=== PATIENT | female | born 1955 | race Caucasian/White ===

== ENCOUNTER 2019-07-14 13:35 | Outpatient (CLI) | payer MEDICARE, SELFPAY ==
--- NOTE | 2019-07-14 | ECHO_ITS ---
Patient Info Name: Rosi Flaherty Age: 63 years : 1955 Gender: Female Ht: 67 in Wt: 210 lbs BSA: 2.16 m2 HR: 90 bpm BP: 179 / 89 mmHg Heart Rhythm: Sinus Rhythm Technical Quality: Good Exam Date: 07/14/2019 2:16 PM Exam Location: [facility] Patient Status: Outpatient Admit Date: 07/14/2019 Staff Ordering Physician: Gibran Adam MD Can Reconditioner: Isela Kc RDCS Attending Provider: Shanelle*, Gibran Varela MD Referring Physician: Rolanda BAILEY; Exam Type: CA echo doppler color flow Study Info Indications - SOB Complete two-dimensional, color flow and Doppler transthoracic echocardiogram is performed. Summary 1. Left ventricular chamber dimension is normal. 2. Left ventricular systolic function is normal, estimated at 60-65%. 3. 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 4. There is mild mitral valve regurgitation. Left Ventricle Left ventricular chamber dimension is normal. Left ventricular systolic function is normal, estimated at 60-65%. The left ventricular diastolic function is grade I diastolic dysfunction. 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 Right Ventricle Right ventricular chamber dimension is normal. Left Atria Left atrial chamber dimension is normal. Right Atria Right atrial chamber dimension is normal. Aortic Valve The aortic valve is normal. Pulmonic Valve The pulmonic valve is normal. Mitral Valve The mitral valve has normal leaflets and calcified annulus. There is mild mitral valve regurgitation. Tricuspid Valve The tricuspid valve leaflets are normal. There is mild tricuspid valve regurgitation. Pericardium/Pleural The pericardium appears normal. Aorta The aortic root size at the sinus of Valsalva is normal. Left Ventricular Outflow Tract Name Value Normal LVOT 2D LVOT Diameter 2.0 cm LVOT Doppler LVOT Peak Gradient 6 mmHg LVOT Mean Gradient 4 mmHg LVOT VTI 25 cm LVOT VTI/AV VTI Ratio 0.9 LVOT Stroke Volume 79 ml LVOT CO 18.7 l/min LVOT CI 8.7 l/min/m2 Pulmonic Valve Name Value Normal PV Doppler PV Peak Gradient 4 mmHg Tricuspid Valve Name Value Normal TV Regurgitation Doppler TR Peak Velocity 294 cm/s TR Peak Gradient 29 mmHg Estimated PAP/RSVP
== END 2019-07-14 13:36 | disposition home or self-care (01) ==
PROVIDERS: PCP Internal Medicine; Visit Provider Internal Medicine
DX: R06.02 Shortness of breath (principal)
CPT/HCPCS: 93306

== ENCOUNTER 2020-07-01 08:03 | Outpatient (CLI) | payer MEDICARE, SELFPAY ==
--- NOTE | ~2020-07-01 | XR_ITS ---
EXAMINATION: HAND-JUAN JOSÉ ARTHRITIS 3+VIEWS DATE: 07/01/2020 09:08 INDICATION: Systemic sclerosis. Unspecified arthritis. TECHNIQUE: Posteroanterior, lateral, and oblique views of the left and of the right hands as well as a ballcatchers view of both hands were obtained. COMPARISON: None. FINDINGS: There are swan-neck deformities at the bilateral hands most prominently at the right third digit and to a lesser degree at the right second and left second, third and fifth digits. No fractures. Periart icular predominant osteopenia. Osteolysis at the distal phalanges of the right first, third and most probably second distal phalanges and at the left second and third distal phalanges. Polyarticular abigail nt space narrowing throughout the bilateral hands and wrists most prominent at at the bilateral dista l interphalangeal joints, at the bilateral first carpal metacarpal joints and at the right third and fourth proximal interphalangeal joints where there are erosions at the base of the middle phalanges. There is ankylosis across the right fourth distal interphalangeal left third and fifth distal interph alangeal joints. There are small periarticular calcifications about many of the bilateral metacarpoph alangeal and interphalangeal joints. Additional soft tissue calcifications near the base of the right fifth metacarpal and at the bilateral wrists near the extensor carpi ulnaris grooves. IMPRESSION: 1. Constellation of findings at the bilateral hands and wrists most consistent with scleroderma inclu ding moderate to severe polyarticular joint space narrowing most prominent at the bilateral first car pometacarpal and multiple bilateral interphalangeal joints, erosions including distal acro-osteolysis , periarticular osteopenia and subcutaneous and periarticular calcifications. Reviewed, dictated and finalized at location B. ET TESTER IMPRESSION: 1. Constellation of findings at the bilateral hands and wrists most consistent with scleroderma including moderate to severe polyarticular joint space narrowi ng most prominent at the bilateral first carpometacarpal and multiple bilateral interphalangeal joints, erosions including distal acro-osteolysis, periarticul ar osteopenia and subcutaneous and periarticular calcifications.
--- NOTE | ~2020-07-01 | XR_ITS ---
EXAMINATION: XR foot RT standing 2V DATE: 07/01/2020 09:08 INDICATION: Systemic sclerosis, unspecified. TECHNIQUE: 2 views of right foot were obtained. COMPARISON: None. FINDINGS: Bone alignment is normal. No fracture. There is mild osteoarthritis of first metatarsophala ngeal joint, talonavicular joint, and some of the interphalangeal joints. There is an enthesophyte at plantar aspect of calcaneal tuberosity. There are soft tissue calcifications in the third and fifth digits. IMPRESSION: 1. Soft tissue calcifications in the third and fifth digits, which may be seen with systemic sclerosi s. 2. Mild polyarticular osteoarthritis. Reviewed, dictated and finalized at location A. K AIRMAN IMPRESSION: 1. Soft tissue calcifications in the third and fifth digits, which may be seen with systemic sclerosis. 2. Mild polyarticular osteoarthritis.
--- NOTE | ~2020-07-01 | XR_ITS ---
EXAMINATION: XR foot LT standing 2V DATE: 07/01/2020 09:08 INDICATION: Systemic sclerosis, unspecified. TECHNIQUE: 2 views of left foot were obtained. COMPARISON: None. FINDINGS: Bone alignment is normal. No fracture. There is mild osteoarthritis of first metatarsophala ngeal joint, talonavicular joint, some of the interphalangeal joints. There is ankylosis of the third -fifth distal interphalangeal joints. There is a soft tissue calcification in the second digit. IMPRESSION: 1. Soft tissue calcification in the second digit, which may be seen with systemic sclerosis. 2. Mild polyarticular osteoarthritis. Reviewed, dictated and finalized at location A. ER HELPER IMPRESSION: 1. Soft tissue calcification in the second digit, which may be seen with system ic sclerosis. 2. Mild polyarticular osteoarthritis.
--- NOTE | ~2020-07-01 | XR_ITS ---
EXAMINATION: XR lumbar spine min 4V DATE: 07/01/2020 09:08 INDICATION: Systemic sclerosis, unspecified. TECHNIQUE: 5 views of lumbar spine were obtained. COMPARISON: None. FINDINGS: There is 3 degrees dextrocurvature of lumbar spine. There is a chronic compression fracture of L1 with 1/5 loss of height. There is mildly decreased disc height at L1-L2 and severely decreased disc height at L5-S1. There are endplate osteophytes at all levels. There is severe bilateral facet joint osteoarthritis at L5-S1. IMPRESSION: 1. Severe lower lumbar spondylosis. Reviewed, dictated and finalized at location A. MANAGER
--- NOTE | ~2020-07-01 | XR_ITS ---
EXAMINATION: XR knee LT min 4V DATE: 07/01/2020 09:09 INDICATION: Systemic sclerosis, unspecified. TECHNIQUE: 4 views of left knee were obtained. COMPARISON: None. FINDINGS: Bone alignment is normal. No fracture. There is moderate osteoarthritis of medial compartme nt and mild osteoarthritis of lateral and patellofemoral compartments. No knee joint effusion. IMPRESSION: 1. Moderate left knee osteoarthritis. Reviewed, dictated and finalized at location A. ONNEL SECURITY ASSISTANT
[2020-07-01 08:36] LABS: Hematocrit 36.7 % (37.0-47.0); Hemoglobin 12.5 g/dL (12.0-15.0); Mean Corpuscular HGB Conc 34.1 g/dl (32-36); Mean Corpuscular Volume 99.7 fl (80-100); Mean Platelet Volume 10.6 fl (7.4-10.4); Platelet Count Result 230 k/mm3 (150-375); Red Blood Count 3.68 M/mm3 (4.2-5.4); Red Cell Distribution Width 13.2 % (11.5-14.5); White Blood Count 7.6 K/mm3 (4.5-10.0)
[2020-07-01 08:50] LABS: Add Urine Microscopic? YES; Appearance Urine Cloudy (Clear); Bacteria Urine Trace /hpf; Bilirubin Urine Negative (Negative); Color Urine Yellow (Yellow); Glucose Urine UA 3+ mg/dL (Negative); Hyaline Casts Urine 20-29 /lpf; Ketones Urine Negative (Negative); Leukocyte Esterase Ur 3+ LEU/UL (Negative); Mucus Urine Few /lpf; Nitrate Urine Negative (Negative); Protein Urine 1+ mg/dL (Negative); Specific Grav Ur 1.017 (1.001-1.035); Squamous Epithelial Cell Urine Many /hpf (Few); Urobilinogen Urine Negative mg/dL (<2.0); WBC Urine >75 /hpf
[2020-07-01 08:50] LABS: Alanine Aminotransferase 38 U/L (4-35); Albumin Level 3.8 g/dL (3.5-5.1); Alkaline Phosphatase 52 U/L (38-126); Anion Gap 5 mmol/L (8-16); Aspartate Amino Transferase 52 U/L (14-36); Bilirubin,Total 0.4 mg/dL (0.2-1.3); Blood Urea Nitrogen 11 mg/dL (7-17); CRP 0.8 mg/dL (<1.0); Calcium 8.9 mg/dL (8.4-10.2); Carbon Dioxide 30 mmol/L (22-30); Chloride 101 mmol/L (98-107); Creatine Kinase 57 U/L (30-135); Estimated Glomerular Filt Rate > 60; Glucose 224 mg/dL (65-105); Lactate Dehydrogenase 363 U/L (313-618); Sodium 136 mmol/L (137-145)
[2020-07-01 09:02] LABS: Blood Urine Negative (Negative)
[2020-07-01 12:21] LABS: Erythrocyte Sedimentation Rate 20 mm/hr (0-20)
[2020-07-08 04:27] LABS: Aldolase 5.3 U/L (<=8.1)
== END 2020-07-01 08:04 | disposition home or self-care (01) ==
LOC: ANHLAB 08:09
PROVIDERS: PCP Internal Medicine; Visit Provider Internal Medicine
DX: M34.9 Systemic sclerosis, unspecified (principal); M06.9 Rheumatoid arthritis, unspecified; M60.9 Myositis, unspecified; M19.90 Unspecified osteoarthritis, unspecified site; M47.896 Other spondylosis, lumbar region; M19.072 Primary osteoarthritis, left ankle and foot; M17.12 Unilateral primary osteoarthritis, left knee
CPT/HCPCS: 36415; 72110; 73130; 73564; 73620; 80053; 81001; 82085; 82550; 83615; 85027; 85652; 86140; 87086; 87088

== ENCOUNTER → 2020-08-11 12:49 | Outpatient (CLI) | payer MEDICARE, SELFPAY ==
--- NOTE | ~2020-08-11 | US_ITS ---
US transvaginal DATE: 08/11/2020 13:49 INDICATION: Postmenopausal bleeding TECHNIQUE: Real-time imaging via transvaginal approach only COMPARISON: 07/09/2009 CT abdomen pelvis FINDINGS: Uterus measures 9 cm height, 5.2 cm AP and 5.6 cm transverse dimension. Central endometrial echo complex is abnormally prominent and up to 2 cm AP dimension. Endometrial carcinoma cannot be ex cluded. Gynecologic consultation is recommended. The ovaries are not detected transvaginally. No pelvic mass or abnormal pelvic fluid collection is evident. IMPRESSION: Abnormal 2 cm Central endometrial echo; endometrial carcinoma is not excluded. Gynecologi c consult is recommended Reviewed, dictated and finalized at Location A. Reviewed, dictated and finalized at location A. IMPRESSION: Abnormal 2 cm Central endometrial echo; endometrial carcinoma is no t excluded. Gynecologic consult is recommended
== END ==
PROVIDERS: Visit Provider Obstetrics & Gynecology
DX: N95.0 Postmenopausal bleeding (principal)
CPT/HCPCS: 76830

== ENCOUNTER 2020-09-07 14:05 | Outpatient (CLI) | payer MEDICARE, SELFPAY ==
--- NOTE | ~2020-09-07 | XR_ITS ---
EXAMINATION: XR chest 2V DATE: 09/07/2020 14:20 INDICATION: Systemic sclerosis TECHNIQUE: PA and lateral views of the chest were obtained. COMPARISON: 03/05/2007 FINDINGS: Status post right mastectomy tilting in asymmetric increased lucency at the right lower lung zone. No focal airspace opacities, pulmonary edema, pleural effusion or pneumothorax. The cardiomediastinal s ilhouette is normal. Globular dystrophic calcifications at the margins of the right glenohumeral join t likely related to known history of scleroderma. IMPRESSION: 1. No acute cardiopulmonary disease. 2. Globular periarticular dystrophic calcifications at the margins of the right glenohumeral joint co nsistent with known history of scleroderma. Reviewed, dictated and finalized at location A. IMPRESSION: 1. No acute cardiopulmonary disease. 2. Globular periarticular dystrophic calcifications at the margins of the right glenohumeral joint consistent with known history of scleroderma.
== END 2020-09-07 14:06 | disposition home or self-care (01) ==
LOC: ANHIMG 14:10
PROVIDERS: PCP Internal Medicine; Visit Provider Internal Medicine
DX: M34.9 Systemic sclerosis, unspecified (principal)
CPT/HCPCS: 71046

== ENCOUNTER → 2020-10-05 02:24 | Outpatient (CLI) | payer MEDICARE, SELFPAY ==
[2020-10-05 23:32] LABS: SARS-CoV-2 RNA PCR Negative
== END ==
PROVIDERS: PCP Internal Medicine; Visit Provider Obstetrics & Gynecology
DX: Z01.812 Encounter for preprocedural laboratory examination (principal); Z20.822 Contact with and (suspected) exposure to COVID-19
CPT/HCPCS: C9803; U0003; U0005

== ENCOUNTER 2020-10-05 08:57 | Outpatient (CLI) | payer MEDICARE, SELFPAY ==
[2020-10-05 10:09] LABS: Anion Gap 9 mmol/L (8-16); Blood Urea Nitrogen 13 mg/dL (7-17); Calcium 8.6 mg/dL (8.4-10.2); Carbon Dioxide 23 mmol/L (22-30); Chloride 105 mmol/L (98-107); Estimated Glomerular Filt Rate > 60; Glucose 178 mg/dL (65-105); Potassium 4.6 mmol/L (3.4-5.0); Sodium 137 mmol/L (137-145)
== END 2020-10-05 08:58 | disposition home or self-care (01) ==
LOC: ANHSURGERY 09:01
PROVIDERS: Anesthesiology; PCP Internal Medicine; Visit Provider Obstetrics & Gynecology
DX: E11.9 Type 2 diabetes mellitus without complications (principal); Z01.818 Encounter for other preprocedural examination
CPT/HCPCS: 36415; 80048

== ENCOUNTER 2020-10-08 00:25 | Day surgery (SDC) | payer MEDICARE, SELFPAY ==
[2020-09-29 09:29] VITALS: BMI 30.2
--- NOTE | 2020-10-07 14:40 | WPDANESEPPF ---
Anes - Initial Pre Proc Eval Procedure: Operation Date: 10/08/20 14:30 Proposed Procedures p Hysteroscopy Dilation and Curettage - Sunday Herrera MD Date/Time: 10/07/20 14:40 Surgeon: Sunday Herrera MD Pre Op Diagnosis: post menopausal bleeding Patient Data Age: 64 Gender: F Height: 1.7 m Weight: 87.54 kg Allergies Allergy/AdvReac Type Severity Reaction Status Date / Time codeine Allergy Intermediate Swelling Verified 10/08/20 13:31 Aminoglycosides Allergy Mild Rash Verified 10/08/20 13:31 cephalexin Allergy Mild Rash Verified 10/08/20 13:31 Contrast Media Allergy Intermediate HIVES Uncoded 10/08/20 13:31 Home Medications Medication Instructions Recorded Confirmed Type levothyroxine 125 mcg tablet 125 mcg PO DAILY 05/03/20 10/08/20 History losartan 50 mg tablet 50 mg PO DAILY 05/03/20 10/08/20 History metformin 500 mg tablet 1,000 mg PO BID tablet 05/03/20 10/08/20 History naphazo HCl 0.025 %-hyprome 0.2 2 drp OPHTHALMIC (EYE) BID PRN ml 05/03/20 10/08/20 History %-ps 80 0.5 %-Zn sulf 0.25 % eye drops omega-3 fatty acids 1,000 mg 1,000 mg PO DAILY 05/03/20 10/08/20 History capsule tamoxifen 20 mg tablet 20 mg PO DAILY 05/03/20 10/08/20 History tramadol 50 mg tablet 50 mg PO QID PRN tablet 05/03/20 10/08/20 History folic acid 1 mg tablet 1 mg PO DAILY #90 tablet 06/09/20 10/08/20 Rx Lactobacillus acidophilus 10,000 mmu cells PO DAILY 09/29/20 10/08/20 History [Probiotic] ascorbic acid (vitamin C) [Vitamin 500 mg PO DAILY 09/29/20 10/08/20 History C] methotrexate sodium 10 mg PO WEEKLY 09/29/20 10/08/20 History mycophenolate mofetil 500 mg tablet 500 mg PO Q12H #60 tablet 10/01/20 10/08/20 Rx Patient hx anesthesia problems: none Family hx anesthesia problems: none PMFSH Past Medical History Medical History (Updated 10/08/20 @ 11:21 by Sunday Herrera MD) Cancer Diabetes Generalized osteoarthritis of multiple sites HTN (hypertension) Hypercholesterolemia ILD (interstitial lung disease) Myositis Postmenopausal bleeding Restrictive lung disease Rheumatoid arthritis Scleroderma Scleroderma Sjogrens syndrome Thyroid disorder Surgical History Surgical History H/O mastectomy Family History Family History Mother Diabetes mellitus Breast cancer Father Heart disease Grandparent Heart disease Diabetes mellitus Sibling Breast cancer Social History Social History Smoking packs per day: 0.75 Smoking cigarettes per day: 15.0 Years smoked: 10 Smoking pack-years: 7.50 Smoking status: Former smoker Smoking end date: 04/30/90 Alcohol intake: never Substance use: never Substance use type: does not use Living arrangements: with family Spiritual care concerns: No Anes - Eval Final PreProcedure Day of Procedure 10/07/20 14:40 Patient weight: obese Heart: regular rate and rhythm Lungs: clear to auscultation and normal air movement Airway: Mallampati scale class II Neurological: alert and oriented Last oral intake: >/= 8 hours ASA classification: III Emergent: no Anesthetic plan: proceed Anesthesia type and monitoring: general GIVS and LMA Informed Consent: The patient's anesthetic plan and its attendant risks and benefits were discussed with the patient/family/POA. Questions were solicited and answers provided to the satisfaction of the patient/family/POA.
--- NOTE | 2020-10-08 11:10 | PM.HPGS ---
History of Present Illness History of Present Illness Consent: Risks, benefits, and alternatives have been discussed and questions answered. Patient agrees to proceed with procedure. Chief complaint: post menopausal bleeding Narrative: Rosi Flaherty is a 64 year old female with postmenopausal bleeding. ultrasound showed a thickened endometrial complex. Review of Systems Review of Systems: Narrative: vaginal irritation otherwise negative [facility] Past Medical History Medical History (Updated 10/08/20 @ 11:21 by Sunday Herrera MD) Cancer Diabetes Generalized osteoarthritis of multiple sites HTN (hypertension) Hypercholesterolemia ILD (interstitial lung disease) Myositis Postmenopausal bleeding Restrictive lung disease Rheumatoid arthritis Scleroderma Scleroderma Sjogrens syndrome Thyroid disorder Surgical History Surgical History H/O mastectomy Family History Family History Mother Diabetes mellitus Breast cancer Father Heart disease Grandparent Heart disease Diabetes mellitus Sibling Breast cancer Social History Social History Smoking packs per day: 0.75 Smoking cigarettes per day: 15.0 Years smoked: 10 Smoking pack-years: 7.50 Smoking status: Former smoker Smoking end date: 04/30/90 Alcohol intake: never Substance use: never Substance use type: does not use Living arrangements: with family Spiritual care concerns: No Meds Home Medications and Allergies Home Medications Medication Instructions Recorded Confirmed Type levothyroxine 125 mcg tablet 125 mcg PO DAILY 05/03/20 09/29/20 History losartan 50 mg tablet 50 mg PO DAILY 05/03/20 09/29/20 History metformin 500 mg tablet 1,000 mg PO BID tablet 05/03/20 09/29/20 History naphazo HCl 0.025 %-hyprome 0.2 2 drp OPHTHALMIC (EYE) BID PRN ml 05/03/20 09/29/20 History %-ps 80 0.5 %-Zn sulf 0.25 % eye drops omega-3 fatty acids 1,000 mg 1,000 mg PO DAILY 05/03/20 09/29/20 History capsule tamoxifen 20 mg tablet 20 mg PO DAILY 05/03/20 09/29/20 History tramadol 50 mg tablet 50 mg PO QID PRN tablet 05/03/20 09/29/20 History folic acid 1 mg tablet 1 mg PO DAILY #90 tablet 06/09/20 09/29/20 Rx Lactobacillus acidophilus 10,000 mmu cells PO DAILY 09/29/20 09/29/20 History [Probiotic] ascorbic acid (vitamin C) [Vitamin 500 mg PO DAILY 09/29/20 09/29/20 History C] methotrexate sodium 10 mg PO WEEKLY 09/29/20 09/29/20 History mycophenolate mofetil 500 mg tablet 500 mg PO Q12H #60 tablet 10/01/20 Rx Allergies Allergy/AdvReac Type Severity Reaction Status Date / Time codeine Allergy Intermediate Swelling Verified 09/29/20 09:38 Aminoglycosides Allergy Mild Rash Verified 09/29/20 09:25 cephalexin Allergy Mild Rash Verified 09/29/20 09:25 Contrast Media Allergy Intermediate HIVES Uncoded 09/29/20 09:25 Exam Resp: Auscultation: clear to auscultation bilaterally Cardio: Rate: regular rate Rhythm: regular rhythm GI: GI Palp: Yes Soft to palpation : External Female Exam: lesion Speculum Exam - Vagina: normal appearance of the vagina OB/external & speculum: vaginal bleeding Assessment and Plan Assessment and plan (1) Postmenopausal bleeding: Code(s): N95.0 - Postmenopausal bleeding Status: Acute Assessment and Plan: scheduled for a hysteroscopy with dilation and curettage. Risk and benefits reviewed with patient.
[2020-10-08 13:00] VITALS: BP 98/61; PULSE 79; RESP 18; TEMP 37.1; O2SAT 98
[2020-10-08] MEDS: LACTATED RINGERS 1,000 ML 30 ML IV CONT (13:00)
[2020-10-08 13:26] LABS: Glucose Point of Care 178 mg/dl (65-105)
--- NOTE | 2020-10-08 14:15 | WPDHPUPDATE1 ---
History and Physical Update Update Date/Time: 10/08/20 14:15 History and Physical has been reviewed, including an updated exam of the patient. There are NO changes in the patient's condition. Risks, benefits, and alternatives have been discussed and questions answered. Patient agrees to proceed with procedure.
[2020-10-08 15:20] VITALS: BP 146/71; PULSE 78; RESP 12; O2SAT 99
[2020-10-08 15:50] VITALS: BP 128/62; PULSE 71
[2020-10-09 08:00] LABS: Glucose Point of Care 123 mg/dl (65-105)
--- NOTE | 2020-10-11 06:46 | OP_ITS ---
DATE OF PROCEDURE: 10/08/2020 PREOPERATIVE DIAGNOSIS: Postmenopausal bleeding. POSTOPERATIVE DIAGNOSIS: Postmenopausal bleeding, fibroid and polyp. PROCEDURE PERFORMED: Hysteroscopy with dilation and curettage with MyoSure. EBL: 2 cc. FINDINGS: Fibroids and uterine polyp. DESCRIPTION OF PROCEDURE: The patient taken to the operating room and placed in a lithotomy position. Prepped and draped in a normal sterile fashion and given conscious sedation. A bivalve speculum was placed into the vagina. Anterior lip of the cervix was grasped with a single-tooth tenaculum. The cervix was injected at the 2 and 10 o'clock position with 5 cc of lidocaine bilaterally. The uterus was sounded to 9 cm. The cervix was dilated with Hegar dilators through a hysteroscope introduced and noted a posterior endometrial polyp and anterior fibroid. The hysteroscope was removed. The MyoSure device was attached to the hysteroscope and the MyoSure device was activated taking copious biopsies and removal of the polyp and fibroid. A sharp curettage was then performed in all 4 quadrants of the uterus. The instruments were removed from the vagina. Sponge, lap, and needle counts were correct x2. The patient was taken to recovery room in stable condition. Priya I MT: Erick
== END 2020-10-08 16:04 | disposition home or self-care (01) ==
PROVIDERS: PCP Internal Medicine; Visit Provider Obstetrics & Gynecology
PROC: 0U5B8ZZ Destruction of Endometrium, Via Natural or Artificial Opening Endoscopic (ICD-10-PCS; CPT 58563; principal; 2020-10-08 14:30)
DX: N95.0 Postmenopausal bleeding (principal); N84.0 Polyp of corpus uteri; I10 Essential (primary) hypertension; E78.00 Pure hypercholesterolemia, unspecified; J84.9 Interstitial pulmonary disease, unspecified; M06.9 Rheumatoid arthritis, unspecified; M34.9 Systemic sclerosis, unspecified; M35.00 Sjogren syndrome, unspecified; E07.9 Disorder of thyroid, unspecified; E11.9 Type 2 diabetes mellitus without complications; M89.49 Other hypertrophic osteoarthropathy, multiple sites; Z87.891 Personal history of nicotine dependence; E66.9 Obesity, unspecified; Z68.29 Body mass index [BMI] 29.0-29.9, adult; Z79.84 Long term (current) use of oral hypoglycemic drugs
CPT/HCPCS: 58558; 36415; 80048; 82948; 88305; A9270; C9803; J2704; J7030; J7120; U0003; U0005

== ENCOUNTER 2020-10-21 15:46 | Outpatient (CLI) | payer MEDICARE, SELFPAY ==
[2020-10-21 16:25] LABS: Hematocrit 37.5 % (37.0-47.0); Hemoglobin 12.4 g/dL (12.0-15.0); Mean Corpuscular HGB Conc 33.1 g/dl (32-36); Mean Corpuscular Hemoglobin 32.7 pg (26-34); Mean Corpuscular Volume 98.9 fl (80-100); Mean Platelet Volume 10.7 fl (7.4-10.4); Platelet Count Result 245 k/mm3 (150-375); Red Blood Count 3.79 M/mm3 (4.2-5.4); Red Cell Distribution Width 13.2 % (11.5-14.5); White Blood Count 7.3 K/mm3 (4.5-10.0)
[2020-10-21 16:34] LABS: Add Urine Microscopic? YES; Appearance Urine Clear (Clear); Bilirubin Urine Negative (Negative); Blood Urine Negative (Negative); Color Urine Yellow (Yellow); Glucose Urine UA 3+ mg/dL (Negative); Ketones Urine Negative (Negative); Leukocyte Esterase Ur Negative LEU/UL (NEGATIVE); Mucus Urine Rare /lpf; Nitrate Urine Negative (Negative); Protein Urine Negative (Negative); RBC Urine 0-2 /hpf (0-2); Specific Grav Ur 1.014 (1.001-1.035); Squamous Epithelial Cell Urine Few /hpf (Few); Urobilinogen Urine Negative mg/dL (<2.0); WBC Urine 0-3 /hpf (0-3)
[2020-10-21 16:39] LABS: Alanine Aminotransferase 34 U/L (4-35); Alkaline Phosphatase 42 U/L (38-126); Anion Gap 8 mmol/L (8-16); Aspartate Amino Transferase 56 U/L (14-36); Bilirubin,Total 0.6 mg/dL (0.2-1.3); Blood Urea Nitrogen 16 mg/dL (7-17); CRP 0.9 mg/dL (<1.0); Calcium 9.1 mg/dL (8.4-10.2); Carbon Dioxide 26 mmol/L (22-30); Chloride 102 mmol/L (98-107); Estimated Glomerular Filt Rate > 60; Glucose 257 mg/dL (65-105); Potassium 4.9 mmol/L (3.4-5.0); Sodium 136 mmol/L (137-145)
[2020-10-21 17:31] LABS: Erythrocyte Sedimentation Rate 24 mm/hr (0-20)
== END 2020-10-21 15:47 | disposition home or self-care (01) ==
LOC: ANHLAB 15:51
PROVIDERS: PCP Internal Medicine; Visit Provider Internal Medicine
DX: M34.9 Systemic sclerosis, unspecified (principal); M19.90 Unspecified osteoarthritis, unspecified site
CPT/HCPCS: 36415; 80053; 81001; 85027; 85652; 86140

== ENCOUNTER 2020-11-04 12:35 | Outpatient (CLI) | payer MEDICARE, SELFPAY ==
--- NOTE | ~2020-11-04 | CT_ITS ---
EXAMINATION: CT chest high resolution wo hi DATE: 11/04/2020 13:19 INDICATION: Interstitial lung disease. Shortness of breath. TECHNIQUE: Computed tomography (CT) of the chest was performed without intravenous contrast. The dose -length product was 195.18 mGy-cm. Automated exposure control and iterative reconstruction technique were employed. COMPARISON: CT dated 08/12/2014 FINDINGS: Heart size normal. No significant pleural or pericardial effusion. No thoracic lymphadenopa thy. There is mild atherosclerosis of the aorta and coronary arteries. There are peripheral groundgla ss opacities in both lungs with no interlobular septal thickening which has progressed since prior ex amination, consistent with chronic interstitial lung disease. There is a 3 mm fissural nodule on the right, image 39 which appears unchanged, consistent with chronic granulomatous disease. Mild thoracic spondylosis. No acute osseous abnormality. There are gallstones. IMPRESSION: 1. Progression of interstitial lung disease with a pattern consistent with usual interstitial pneumon ia. 2: Cholelithiasis. Reviewed, dictated and finalized at location A. IMPRESSION: 1. Progression of interstitial lung disease with a pattern consistent with usua l interstitial pneumonia. 2: Cholelithiasis.
== END 2020-11-04 12:36 | disposition home or self-care (01) ==
PROVIDERS: PCP Internal Medicine; Visit Provider Nurse Practitioner Family
DX: J84.9 Interstitial pulmonary disease, unspecified (principal); K80.20 Calculus of gallbladder without cholecystitis without obstruction
CPT/HCPCS: 36415; 71250; 86300

== ENCOUNTER 2020-11-04 13:24 | Outpatient (CLI) | payer MEDICARE, SELFPAY ==
[2020-11-07 08:55] LABS: CA 15-3 16 U/mL (<32)
== END 2020-11-04 13:25 | disposition home or self-care (01) ==
LOC: ANHLAB 13:26
PROVIDERS: PCP Internal Medicine; Visit Provider Internal Medicine Medical Oncology
DX: C50.811 Malignant neoplasm of overlapping sites of right female breast (principal); Z17.0 Estrogen receptor positive status [ER+]
CPT/HCPCS: 36415; 86300

== ENCOUNTER 2020-11-19 12:36 | Outpatient (CLI) | payer MEDICARE, SELFPAY ==
--- NOTE | 2020-11-19 17:09 | P.PCNPFT_ITS ---
PFT Procedure Performed PFT Procedure Performed Spirometry with Pre/Post Bronchodilator Plethysmography (Lung Vol) Diffusing Cap (DLCO) Flow Vol Loop PFT Interpretation This is a pulmonary function test with pre and post-bronchodilator spirometry, plethysmography and diffusing capacity. The test was performed and results interpreted in accordance with the 2019 and 2005 ATS/ERS Task Force guidelines respectively using the Global Lung Function Initiative-2012 reference equations. Patient demonstrated good effort and cooperation. Reproducibility criteria were met. The quality of the pre bronchodilator spirometry maneuver was Grade A and post bronchodilator spirometry maneuver was Grade A. Findings: Spirometry: The contour of the inspiratory and expiratory flow tracing are normal. The pre bronchodilator FVC is 1.43 L, 65% predicted. The pre bronchodilator FEV1 is 1.10 L, 63% predicted. The FEV1: FVC ratio 77%. The post bronchodilator FVC is 1.42 L, representing no change. The post bronchodilator FEV1 is 1.06 L, representing a 4% decrease. Plethysmography: The total lung capacity is 2.50 L, 65% predicted. The functional residual capacity is 1.24 L, 58% predicted. The residual volume is 1.03 L, 61% predicted. Diffusing capacity: The absolute diffusion capacity is 12.0, 68% predicted. Di ffusing capacity corrected for alveolar volume is 5.07, 107% predicted. Impression: There is a moderate restrictive ventilatory abnormality. The spirometry is normal without evidence of an obstructive abnormality. There is no significant improvement after inhaling a single dose of albuterol. The diffusing capacity is normal. There are no prior studies for comparison
--- NOTE | 2020-11-19 17:11 | WPDSIXMINUTE ---
Six Minute Walk Procedure Procedure Performed Pulmonary Stress Test (6 min walk) Six Minute Walk This is a 6 minutes walk test. The test was performed and interpreted in accordance with the 2014 ERS/ATS task force guidelines. Findings: The patient's resting room air oxygen saturation measured by pulse oximetry was 99% and her heart rate was 108 bpm. Patient ambulated for 198 meters and oxygen saturation remained 97%. Heart rate at the end of the study was 103 bpm. The patient did not qualify for supplemental oxygen at rest or with ambulation. There are no prior studies for comparison.
== END 2020-11-19 12:37 | disposition home or self-care (01) ==
PROVIDERS: PCP Internal Medicine; Visit Provider Nurse Practitioner Family
DX: R06.00 Dyspnea, unspecified (principal); J84.9 Interstitial pulmonary disease, unspecified; J98.4 Other disorders of lung
CPT/HCPCS: 94060; 94618; 94726; 94729

== ENCOUNTER 2021-03-03 15:11 | Outpatient (CLI) | payer MEDICARE, SELFPAY ==
[2021-03-03 15:51] LABS: Hematocrit 37.8 % (37.0-47.0); Hemoglobin 12.5 g/dL (12.0-15.0); Mean Corpuscular HGB Conc 33.1 g/dl (32-36); Mean Corpuscular Hemoglobin 32.1 pg (26-34); Mean Corpuscular Volume 96.9 fl (80-100); Mean Platelet Volume 10.7 fl (7.4-10.4); Platelet Count Result 241 k/mm3 (150-375); Red Cell Distribution Width 12.8 % (11.5-14.5); White Blood Count 6.8 K/mm3 (4.5-10.0)
[2021-03-03 16:06] LABS: Alanine Aminotransferase 41 U/L (4-35); Albumin Level 3.9 g/dL (3.5-5.1); Alkaline Phosphatase 50 U/L (38-126); Anion Gap 8 mmol/L (8-16); Aspartate Amino Transferase 66 U/L (14-36); Bilirubin,Total 0.7 mg/dL (0.2-1.3); Blood Urea Nitrogen 11 mg/dL (7-17); Calcium 8.5 mg/dL (8.4-10.2); Carbon Dioxide 26 mmol/L (22-30); Chloride 104 mmol/L (98-107); Estimated Glomerular Filt Rate > 60; Glucose 183 mg/dL (65-110); Potassium 4.8 mmol/L (3.4-5.0); Sodium 138 mmol/L (137-145)
[2021-03-03 16:06] LABS: Add Urine Microscopic? YES; Appearance Urine Cloudy (Clear); Bilirubin Urine Negative (Negative); Blood Urine Negative (Negative); Color Urine Yellow (Yellow); Glucose Urine UA Negative (Negative); Ketones Urine Trace mg/dL (Negative); Leukocyte Esterase Ur Trace LEU/UL (Negative); Mucus Urine Rare /lpf; Nitrate Urine Negative (Negative); Protein Urine Negative (Negative); RBC Urine 0-2 /hpf (0-2); Specific Grav Ur 1.024 (1.001-1.035); Squamous Epithelial Cell Urine Many /hpf (Few); Urobilinogen Urine Negative mg/dL (<2.0)
[2021-03-03 16:33] LABS: Erythrocyte Sedimentation Rate 24 mm/hr (0-20)
== END 2021-03-03 15:12 | disposition home or self-care (01) ==
LOC: ANHLAB 15:16
PROVIDERS: PCP Internal Medicine; Visit Provider Internal Medicine
DX: J84.9 Interstitial pulmonary disease, unspecified (principal); M34.9 Systemic sclerosis, unspecified; M19.90 Unspecified osteoarthritis, unspecified site
CPT/HCPCS: 36415; 80053; 81001; 85027; 85652; 86140

== ENCOUNTER 2021-05-03 12:19 | Outpatient (CLI) | payer MEDICARE, SELFPAY ==
[2021-05-03 12:50] LABS: Basophils Absolute Auto 0.1 K/mm3 (0.0-0.1); Basophils Percent Auto 1.1 % (0.2-1.2); Eosinophils Absolute Auto 0.4 K/mm3 (0-0.3); Eosinophils Percent Auto 6.1 % (0-4.4); Hematocrit 36.8 % (37.0-47.0); Immature Granulocyte Absolute 0.01 K/mm3 (0.00-0.031); Immature Granulocyte Percent A 0.2 % (0-0.5); Lymphocytes Absolute Auto 1.68 K/mm3 (0.9-3.2); Lymphocytes Percent Auto 25.7 % (18.3-44.2); Mean Corpuscular HGB Conc 32.6 g/dl (32-36); Mean Corpuscular Hemoglobin 31.7 pg (26-34); Mean Corpuscular Volume 97.4 fl (80-100); Mean Platelet Volume 10.5 fl (7.4-10.4); Monocytes Absolute Auto 0.7 K/mm3 (0.1-0.6); Monocytes Percent Auto 9.9 % (2.6-8.5); Neutrophils Absolute Auto 3.7 K/mm3 (1.3-6.7); Platelet Count Result 236 k/mm3 (150-375); Red Blood Count 3.78 M/mm3 (4.2-5.4); Red Cell Distribution Width 12.7 % (11.5-14.5); White Blood Count 6.5 K/mm3 (4.5-10.0)
[2021-05-03 13:03] LABS: Alanine Aminotransferase 37 U/L (4-35); Albumin Level 3.8 g/dL (3.5-5.1); Alkaline Phosphatase 51 U/L (38-126); Anion Gap 9 mmol/L (8-16); Aspartate Amino Transferase 59 U/L (14-36); Bilirubin,Total 0.4 mg/dL (0.2-1.3); Blood Urea Nitrogen 14 mg/dL (7-17); Calcium 8.6 mg/dL (8.4-10.2); Carbon Dioxide 25 mmol/L (22-30); Chloride 102 mmol/L (98-107); Estimated Glomerular Filt Rate > 60; Glucose 172 mg/dL (65-110); Potassium 4.6 mmol/L (3.4-5.0); Sodium 136 mmol/L (137-145)
[2021-05-03 13:04] LABS: Hemoglobin A1C 7.4 % (<5.7)
[2021-05-05 19:46] LABS: CA 15-3 15 U/mL (<32)
== END 2021-05-03 12:20 | disposition home or self-care (01) ==
PROVIDERS: PCP Internal Medicine; Visit Provider Internal Medicine Medical Oncology
DX: E11.9 Type 2 diabetes mellitus without complications (principal); C50.811 Malignant neoplasm of overlapping sites of right female breast; Z17.0 Estrogen receptor positive status [ER+]
CPT/HCPCS: 36415; 80053; 83036; 85025; 86300

== ENCOUNTER 2021-07-12 12:51 | Outpatient (CLI) | payer MEDICARE, SELFPAY ==
[2021-07-12 12:59] LABS: Hematocrit 38.4 % (37.0-47.0); Hemoglobin 12.6 g/dL (12.0-15.0); Mean Corpuscular HGB Conc 32.8 g/dl (32-36); Mean Corpuscular Volume 97.5 fl (80-100); Mean Platelet Volume 11.6 fl (7.4-10.4); Platelet Count Result 217 k/mm3 (150-375); Red Blood Count 3.94 M/mm3 (4.2-5.4); Red Cell Distribution Width 12.5 % (11.5-14.5); White Blood Count 8.1 K/mm3 (4.5-10.0)
[2021-07-12 13:12] LABS: Alanine Aminotransferase 44 U/L (4-35); Albumin Level 4.2 g/dL (3.5-5.1); Alkaline Phosphatase 46 U/L (38-126); Anion Gap 6 mmol/L (8-16); Aspartate Amino Transferase 73 U/L (14-36); Bilirubin,Total 0.5 mg/dL (0.2-1.3); Blood Urea Nitrogen 14 mg/dL (7-17); CRP < 0.5 mg/dL (<1.0); Calcium 9.1 mg/dL (8.4-10.2); Carbon Dioxide 26 mmol/L (22-30); Chloride 104 mmol/L (98-107); Estimated Glomerular Filt Rate > 60; Glucose 152 mg/dL (65-110); Lactate Dehydrogenase 544 U/L (313-618); Sodium 136 mmol/L (137-145)
[2021-07-12 13:49] LABS: Erythrocyte Sedimentation Rate 18 mm/hr (0-20)
[2021-07-12 14:04] LABS: Add Urine Microscopic? YES; Appearance Urine Cloudy (Clear); Bilirubin Urine Negative (Negative); Color Urine Yellow (Yellow); Glucose Urine UA Negative (Negative); Hyaline Casts Urine 20-29 /lpf; Ketones Urine Trace mg/dL (Negative); Leukocyte Esterase Ur Trace LEU/UL (Negative); Mucus Urine Rare /lpf; Nitrate Urine Negative (Negative); Protein Urine Negative (Negative); Specific Grav Ur 1.015 (1.001-1.035); Squamous Epithelial Cell Urine Few /hpf (Few); Transitional Epi Cells Urine Rare /hpf (None Seen); Urobilinogen Urine Negative mg/dL (<2.0)
[2021-07-12 14:05] LABS: Blood Urine Negative (Negative)
[2021-07-16 05:17] LABS: Aldolase 6.8 U/L (<=8.1)
== END 2021-07-12 12:52 | disposition home or self-care (01) ==
PROVIDERS: PCP Internal Medicine; Visit Provider Internal Medicine
DX: M34.9 Systemic sclerosis, unspecified (principal); M19.90 Unspecified osteoarthritis, unspecified site
CPT/HCPCS: 36415; 80053; 81001; 82085; 83615; 84182; 85027; 85652; 86140; 86235; 87086; 87088

== ENCOUNTER 2021-09-06 07:46 | Outpatient (CLI) | payer MEDICARE, SELFPAY ==
--- NOTE | ~2021-09-06 | NM_ITS ---
EXAM: NM gastric emptying study DATE: 09/06/2021 16:45 CDT INDICATION: Nausea with vomiting TECHNIQUE: A gastric emptying study was performed using the methodology of Heather PARK, et al. J Nucl Med 2007; 48:568-572. The patient was given a meal consisting of 2 scrambled eggs labeled with 0.98 mCi Tc-99m sulfur colloid, 2 slices of toast, two packages of jam, and approximately 120 mL of water. Simultaneous anterior and posterior 1-min images of the abdomen were obtained with the patient supin e at multiple time points over a total period of 4 hours. The geometric mean of anterior and posterio r views was determined, and the percentage retention was calculated for each time point. COMPARISON: CT dated 07/09/2009. FINDINGS: Gastric retention of the radiotracer-labeled meal was 29%, 14%, and 0.6% at the 1-hour, 2- hour, and 4-hour time points, respectively. With this technique, apparent rapid gastric emptying is s uggested by <30% gastric retention at 1 hour. Delayed gastric emptying is defined by gastric retentio n of >90% at 1 hour, >60% retention at 2 hours, or >10% retention at 4 hours. IMPRESSION: 1. Rapid gastric emptying. Reviewed, dictated and finalized at location A. IMPRESSION: 1. Rapid gastric emptying.
== END 2021-09-06 07:47 | disposition home or self-care (01) ==
PROVIDERS: PCP Internal Medicine; Visit Provider Nurse Practitioner Family
DX: R11.2 Nausea with vomiting, unspecified (principal); Z87.19 Personal history of other diseases of the digestive system
CPT/HCPCS: 78264; A9541

== ENCOUNTER 2021-09-23 00:37 | Emergency (ER) | payer MEDICARE, SELFPAY ==
--- NOTE | ~2021-09-23 | CT_ITS ---
EXAMINATION: CT abdomen pelvis wo con DATE: 09/23/2021 03:15 INDICATION: Right upper quadrant abdominal pain. Nausea and vomiting. TECHNIQUE: Computed tomography (CT) of the abdomen and pelvis was performed without intravenous contr ast. Automated exposure control and iterative reconstruction technique were employed. The dose-length product was 593.38 mGy-cm. COMPARISON: CT abdomen and pelvis 07/09/2009, chest CT 11/04/2020 FINDINGS: The visualized portions of the lung bases demonstrate chronic peripheral septal thickening. No bronchiectasis or honeycombing. The heart size is normal. There are coronary artery calcification s. No pericardial effusion. There is diffuse hepatic steatosis. There is liver surface nodularity, co nsistent with cirrhosis. There are gallstones in the gallbladder, which is distended. The spleen, hwang creas, and right adrenal gland are normal. There is a chronic 12 mm mass in left adrenal gland measur ing low-attenuation, consistent with an adenoma. There is a 12 mm mass of fat in right kidney, consis tent with an angiomyolipoma. There is a 4 mm stone in left kidney. There is diverticulosis of the col on without evidence of diverticulitis. The appendix is normal. There are no pathologically enlarged l ymph nodes. There is no free intraperitoneal fluid. There is a chronic compression fracture of L1. Th ere is severe lower lumbar spondylosis. IMPRESSION: 1. Distended gallbladder with gallstones suspicious for acute cholecystitis. 2. Cirrhosis of the liver. 3. Mild chronic interstitial lung disease. Reviewed, dictated and finalized at location A.
[2021-09-23 00:43] VITALS: BP 174/88; PULSE 80; RESP 18; TEMP 36.2; O2SAT 99
[2021-09-23 01:32] LABS: Basophils Percent Auto 0.3 % (0.2-1.2); Eosinophils Absolute Auto 0.1 K/mm3 (0-0.3); Eosinophils Percent Auto 0.6 % (0-4.4); Hemoglobin 12.5 g/dL (12.0-15.0); Immature Granulocyte Absolute 0.03 K/mm3 (0.00-0.031); Immature Granulocyte Percent A 0.4 % (0-0.5); Lymphocytes Absolute Auto 1.08 K/mm3 (0.9-3.2); Mean Corpuscular HGB Conc 32.9 g/dl (32-36); Mean Corpuscular Hemoglobin 32.1 pg (26-34); Mean Corpuscular Volume 97.7 fl (80-100); Mean Platelet Volume 11.3 fl (7.4-10.4); Monocytes Absolute Auto 0.4 K/mm3 (0.1-0.6); Monocytes Percent Auto 4.5 % (2.6-8.5); Neutrophils Absolute Auto 6.2 K/mm3 (1.3-6.7); Neutrophils Percent Auto 80.2 % (45.5-73.1); Platelet Count Result 233 k/mm3 (150-375); Red Blood Count 3.89 M/mm3 (4.2-5.4); Red Cell Distribution Width 12.9 % (11.5-14.5); White Blood Count 7.7 K/mm3 (4.5-10.0)
[2021-09-23 02:43] LABS: Add Urine Microscopic? YES; Appearance Urine Clear (Clear); Bilirubin Urine Negative (Negative); Blood Urine Negative (Negative); Color Urine Yellow (Yellow); Glucose Urine UA 2+ mg/dL (Negative); Ketones Urine 3+ mg/dL (Negative); Leukocyte Esterase Ur Negative LEU/UL (Negative); Nitrate Urine Negative (Negative); Protein Urine Negative (Negative); Specific Grav Ur >= 1.030 (1.001-1.035); Urobilinogen Urine 0.2 mg/dL (<2.0)
[2021-09-23 02:45] LABS: Alanine Aminotransferase 35 U/L (6-35); Albumin Level 4.1 g/dL (3.5-5.1); Alkaline Phosphatase 53 U/L (38-126); Anion Gap 6 mmol/L (8-16); Aspartate Amino Transferase 60 U/L (14-36); Bilirubin,Total 0.4 mg/dL (0.2-1.3); Blood Urea Nitrogen 11 mg/dL (7-17); Calcium 8.6 mg/dL (8.4-10.2); Carbon Dioxide 28 mmol/L (22-30); Chloride 103 mmol/L (98-107); Estimated Glomerular Filt Rate > 60; Glucose 233 mg/dL (65-110); Lipase 93 U/L (23-300); Potassium 4.5 mmol/L (3.4-5.0); Sodium 137 mmol/L (137-145)
[2021-09-23 02:58] LABS: Mucus Urine Rare /lpf; RBC Urine 0-2 /hpf (0-2); Squamous Epithelial Cell Urine Occasional /hpf (Few); WBC Urine 0-3 /hpf
[2021-09-23] MEDS: MORPHINE SULFATE (*CRX) 4 MG/ML INJ IV PUSH ×2 (03:23→06:39)
[2021-09-23 03:24] VITALS: BP 168/70; PULSE 84; RESP 18; O2SAT 100
--- NOTE | 2021-09-23 04:53 | ED.ABDPAIN ---
HPI - Abdominal Pain General Chief Complaint: Abdominal Pain Stated Complaint: abd pain Time Seen by Provider: 09/23/21 00:52 History of Present Illness HPI narrative: Patient is a 65-year-old female who presents ER with upper abdominal pain. Sudden onset around 9 PM. Radiates into her chest. Associate with some nausea but no vomiting. No fevers or chills or sweats. Began after eating some cereal. Patient reports known gallstones. No alleviating factors. Symptoms persist. Related Data Home Medications Medication Instructions Recorded Confirmed levothyroxine 125 mcg tablet 125 mcg PO DAILY 05/03/20 09/14/21 metformin 500 mg tablet 1,000 mg PO BID 05/03/20 09/14/21 omega-3 fatty acids 1,000 mg 1,000 mg PO DAILY 05/03/20 09/14/21 capsule tamoxifen 20 mg tablet 20 mg PO DAILY 05/03/20 09/14/21 tramadol 50 mg tablet 50 mg PO QID PRN Pain 05/03/20 09/14/21 Lactobacillus acidophilus 10 10,000 mmu cells PO DAILY 09/29/20 09/14/21 billion cell capsule (Probiotic) ascorbic acid (vitamin C) 500 mg 500 mg PO DAILY 09/29/20 09/14/21 tablet,extended release (Vitamin C ER) organic vitamin 1 tab-cap BYMOUTH DAILY 07/18/21 09/14/21 valsartan 80 mg tablet 80 mg PO DAILY 07/18/21 09/14/21 Allergies Allergy/AdvReac Type Severity Reaction Status Date / Time codeine Allergy Intermediate Swelling Verified 09/23/21 00:49 Aminoglycosides Allergy Mild Rash Verified 09/23/21 00:49 cephalexin Allergy Mild Rash Verified 09/23/21 00:49 Contrast Media Allergy Intermediate HIVES Uncoded 09/23/21 00:49 Review of Systems Review of Systems: All systems reviewed & are unremarkable except as noted in HPI and below Constitutional: Constitutional: Denies chills, Denies fatigue and Denies fever(s) ENT: Denies nasal congestion and Denies sore throat Cardiovascular: Cardiovascular: Denies chest pain, Denies rapid heart rate and Denies radiating jaw, neck or arm pain Respiratory: Respiratory: Denies cough and Denies dyspnea Gastrointestinal: Gastrointestinal: Reports abdominal pain, Denies diarrhea, Reports nausea and Denies vomiting Genitourinary: Genitourinary: Denies nocturia and Denies dysuria [facility] Past Medical History Medical History Cancer Diabetes Generalized osteoarthritis of multiple sites HTN (hypertension) Hypercholesterolemia ILD (interstitial lung disease) Nausea and vomiting Postmenopausal bleeding Restrictive lung disease Scleroderma (~2008) Sjogrens syndrome Thyroid disorder Surgical History Surgical History H/O mastectomy Family History Family History Mother Diabetes mellitus Breast cancer Father Heart disease Grandparent Heart disease Diabetes mellitus Sibling Breast cancer Social History Social History Smoking packs per day: 1 Smoking cigarettes per day: 20.0 Years smoked: 15 Smoking pack-years: 15.00 Smoking status: Former smoker Tobacco type: cigarettes Smoking end date: 04/30/90 Alcohol intake: never Substance use: never Substance use type: does not use Spiritual care concerns: No Exam Narrative: GENERAL: Well-appearing, well-nourished, and in no acute distress. HEAD: Normocephalic, atraumatic. NECK: Supple. CHEST: Clear to auscultation. No respiratory distress. HEART: Regular rate and rhythm. Normal peripheral pulses. ABDOMEN: Soft, tender palpation right upper quadrant with guarding, nondistended, normal active bowel sounds. EXTREMITIES: Normal range of motion. No edema. SKIN: Warm, dry, no rash. NEURO: Alert and oriented x3. PSYCH: Normal mood and affect. Course Course Emergency Course: Pain improved after 2 doses of morphine. Abdomen soft nontender. Discussed with Dr. Chung. Nava for follow-up in clinic. Will educate on low-fat diet
[2021-09-23 05:27] VITALS: BP 149/96; PULSE 83; RESP 18; O2SAT 100
[2021-09-23 06:41] VITALS: BP 152/83; PULSE 92; RESP 18; O2SAT 99
[2021-09-23] MEDS: ONDANSETRON INJ 4 MG/2 ML VIAL IV PUSH (06:44)
== END 2021-09-23 07:10 | disposition home or self-care (01) ==
PROVIDERS: Emergency Provider Emergency Medicine; PCP Internal Medicine
DX: K80.50 Calculus of bile duct without cholangitis or cholecystitis without obstruction (principal); E27.9 Disorder of adrenal gland, unspecified; E11.9 Type 2 diabetes mellitus without complications; I10 Essential (primary) hypertension; E78.5 Hyperlipidemia, unspecified; M19.90 Unspecified osteoarthritis, unspecified site
CPT/HCPCS: 36415; 74176; 80053; 81001; 81025; 83690; 85025; 96374; 96375; 96376; 99284; J2270; J2405

== ENCOUNTER 2021-09-30 13:28 | Outpatient (CLI) | payer MEDICARE, SELFPAY ==
--- NOTE | 2021-09-30 13:40 | ECG_ITS ---
Measurements Intervals [place] Rate: 94 P: 35 FL: 128 QRS: -6 QRSD: 93 T: 65 QT: 340 QTc: 427 Interpretive Statements SINUS RHYTHM BASELINE ARTIFACT NONSPECIFIC T-WAVE ABNORMALITY BORDERLINE ECG NO PREVIOUS ECG AVAILABLE FOR COMPARISON Electronically Signed On 09-30-2021 17:21:54 CDT by Shad Ramirez M.D.
[2021-09-30 14:05] LABS: Amylase 73 U/L (30-110)
== END 2021-09-30 13:29 | disposition home or self-care (01) ==
PROVIDERS: PCP Internal Medicine; Visit Provider Surgery
DX: Z01.818 Encounter for other preprocedural examination (principal); K80.10 Calculus of gallbladder with chronic cholecystitis without obstruction; I10 Essential (primary) hypertension
CPT/HCPCS: 36415; 82150; 86850; 86900; 86901; 93005

== ENCOUNTER 2021-10-04 00:19 | Day surgery (SDC) | payer MEDICARE, SELFPAY ==
[2021-09-30 10:05] VITALS: BMI 27.7
--- NOTE | 2021-09-30 10:40 | PC.NURSE ---
Report to the Outpatient Waiting Room, entrance under the green pavilion located off [facility], at time _6:00AM on date __10/04/21 . OR Time: __7:30AM . - You and your visitor will be asked a series of questions to screen for COVID 19 for your protection. - Only one visitor is allowed at this time. - The patient visitor is requested to leave or wait in car when not with patient. - A mask is required within the hospital. Patients may have clear liquids (water, carbonated beverages, clear teas, apple juice) until 3 hours prior to surgery with a maximum of 20 ounces. - No food from midnight until time of surgery - Infants may have breast milk until 4 hours before surgery, formula 6 hours prior to surgery. - Children will be allowed to drink immediately following surgery. If applicable, please bring a bottle or sippy cup to assist with drinking. Juice, water, soda, and popsicles are readily available. For infants on formula, please bring formula the day of surgery. Pacifiers are allowed. Take the following medications with a SIP of water the morning of surgery: ___LEVOTHYROXINE, MYCOPHENOLATE, AND NEEDED-TRAMADOL, HYDROCODONE, ZOFRAN Medications to discontinue per physician ____HOLD ALL VITAMINS/SUPPLEMENTS 3 DAYS PRE-OP Date to take last dose____09/30/21 Please no make-up, nail turkmen, hairspray, perfume, deodorant, or body powder the day of surgery. No jewelry (including any body piercings) or valuables the day of surgery, leave them at home. Please take a shower or bath the night before, or the morning of, surgery with an antibacterial soap. Wear comfortable, loose fitting clothing. Children are encouraged to wear pajamas. - Jewelry must be removed prior to entering the operating room. Rings and piercings that are not removed may be cut off. - The hospital will not accept responsibility for valuables. - Please leave all valuables, including medications, at home the day of surgery. * HIBICLENS SHOWER MORNING OF SURGERY* If you are going home after surgery, a licensed truck driver flatbed must drive you home. - NO public transportation without another adult. - We recommend that an adult stay with you for 24 hours following discharge. - We also recommend that you do not drive, make important decision, drink alcoholic beverages, or take any drugs that were not prescribed by your health care provider for at least 24 hours after your discharge time. For Pediatric surgeries, we recommend two adults accompany the child home (only one inside the building at this time). Follow any additional instructions given to you from your surgeon. If you or anyone in your household have experienced Covid symptoms in the past week, please notify your surgeon or the nurse liaison at the phone number below for possible testing. Telephone instructions given to __PATIENT and asked if any additional questions and then verbalized understanding. Patient advised to call surgeon office or pre surgery nurse liaison [phone] if any additional questions.
--- NOTE | 2021-10-03 14:09 | WPDANESEPPF ---
Anes - Initial Pre Proc Eval Procedure: Operation Date: 10/04/21 07:30 Proposed Procedures p Laparoscopic Cholecystectomy - Yee Sanchez MD Date/Time: 10/03/21 14:09 Surgeon: Yee Sanchez MD Pre Op Diagnosis: Chronic Calculous Cholecystitis Patient Data Age: 65 Gender: F Height: 1.68 m Weight: 78 kg Allergies Allergy/AdvReac Type Severity Reaction Status Date / Time iohexol Allergy Severe Rash Verified 10/04/21 06:32 [From contrast - CT, X-RAY] codeine AdvReac Mild Nausea and Verified 10/04/21 06:31 Vomiting Home Medications Medication Instructions Recorded Confirmed Type levothyroxine 125 mcg tablet 125 mcg PO QAM 05/03/20 10/04/21 History metformin 500 mg tablet 1,000 mg PO BID 05/03/20 10/04/21 History omega-3 fatty acids 1,000 mg 1,000 mg PO DAILY 05/03/20 10/04/21 History capsule tamoxifen 20 mg tablet 20 mg PO DAILY 05/03/20 10/04/21 History tramadol 50 mg tablet 50 mg PO QID PRN Pain 05/03/20 10/04/21 History Lactobacillus acidophilus 10 10,000 mmu cells PO DAILY 09/29/20 10/04/21 History billion cell capsule (Probiotic) ascorbic acid (vitamin C) 500 mg 500 mg PO DAILY 09/29/20 10/04/21 History tablet,extended release (Vitamin C ER) valsartan 80 mg tablet 80 mg PO QPM 07/18/21 10/04/21 History mycophenolate mofetil 250 mg 250 mg PO Q12H #60 caps 07/26/21 10/04/21 Rx capsule (CellCept) ondansetron 4 mg disintegrating 4 mg PO Q6H PRN nausea and 09/23/21 09/30/21 Rx tablet vomiting #10 tabs hydrocodone 5 mg-acetaminophen 325 1 tablet PO Q6H PRN pain #20 tabs 09/30/21 09/30/21 Rx mg tablet omeprazole 20 mg tablet,delayed 20 mg PO DAILY PRN Indigestion 09/30/21 10/04/21 History release Patient hx anesthesia problems: post op nausea/vomiting Family hx anesthesia problems: none Results Review: All pre-operative results and documents have been reviewed as part of the pre-operative evaluation. PMFSH Past Medical History Medical History (Updated 09/27/21 @ 15:47 by Cristiana Piña) Cancer Diabetes Generalized osteoarthritis of multiple sites HTN (hypertension) Hypercholesterolemia ILD (interstitial lung disease) Nausea and vomiting Postmenopausal bleeding Restrictive lung disease Scleroderma (~2008) Sjogrens syndrome Thyroid disorder Surgical History Surgical History H/O mastectomy H/O pelvic surgery Family History Family History Mother Diabetes mellitus Breast cancer Father Heart disease Grandparent Heart disease Diabetes mellitus Sibling Breast cancer Social History Social History Smoking packs per day: 0.75 Smoking cigarettes per day: 15.0 Years smoked: 15 Smoking pack-years: 11.25 Smoking status: Former smoker Tobacco type: cigarettes Smoking end date: 10/28/86 Alcohol intake: never Substance use: never Substance use type: does not use Living arrangements: with family Additional living arrangements comments: [facility] Spiritual care concerns: No Anes - Eval Final PreProcedure Day of Procedure 10/03/21 14:09 Patient weight: normal Heart: regular rate and rhythm Lungs: clear to auscultation Airway: Mallampati scale class III Neurological: alert and oriented Last oral intake: >/= 8 hours ASA classification: III Emergent: no Anesthetic plan: proceed Anesthesia type and monitoring: general ETT and standard monitoring Results Review: All pre-operative results and documents have been reviewed as part of the pre-operative evaluation. Informed Consent: The patient's anesthetic plan and its attendant risks and benefits were discussed with the patient/family/POA. Questions were solicited and answers provided to the satisfaction of the patient/family/POA.
[2021-10-04] VITALS (15 sets, daily range): BP systolic 120–160; BP diastolic 60–97; PULSE 57–92; RESP 12–21; TEMP 36.4–36.6; O2SAT 95–100
[2021-10-04] MEDS: ACETAMINOPHEN 500 MG TABLET 1000 MG PO (06:32)
[2021-10-04] MEDS: LACTATED RINGERS 1,000 ML 30 ML IV CONT ×2 (07:14→08:39)
[2021-10-04 07:16] LABS: Glucose Point of Care 151 mg/dl (65-105)
--- NOTE | 2021-10-04 07:25 | WPDHPUPDATE1 ---
History and Physical Update Update Date/Time: 10/04/21 07:25 History and Physical has been reviewed, including an updated exam of the patient. There are NO changes in the patient's condition. Risks, benefits, and alternatives have been discussed and questions answered. Patient agrees to proceed with procedure.
[2021-10-04] MEDS: ceFAZolin 2 GM/D5W 50 ML 2 GM/50 ML BAG IVPB (07:28)
[2021-10-04] MEDS: KETOROLAC 15 MG/ML VIAL (*BKC) IV PUSH (07:29)
[2021-10-04 08:49] LABS: Glucose Point of Care 167 mg/dl (65-105)
--- NOTE | 2021-10-04 08:50 | W.PM.PROC2 ---
Procedure Note - Detailed Date of Procedure 10/04/21 Pre-op Diagnosis Chronic Calculous Cholecystitis Post-op Diagnosis Same Procedure Performed Laparoscopic cholecystectomy Surgeon Yee Sanchez MD Anesthesia General Indications 65-year-old female presented to the office complaining of postprandial right upper quadrant abdominal pain associated with nausea and vomiting. Workup including imaging significant for chronic cholecystitis, cholelithiasis. Findings Hydrops cholecystitis with cholelithiasis Description of Procedure The patient was taken to the operating room placed in the supine position. After adequate induction of general anesthesia, the patient was prepped and draped in normal sterile fashion. A time-out was then performed to verify the patient's identity as well as the procedure being performed. I then made a 5 mm incision in the infraumbilical region. Through this, a Veress needle was placed into the peritoneal cavity and CO2 gas was then insufflated. After adequate pneumoperitoneum was achieved, the Veress needle was removed and a 5 mm optiview trocar was placed through this incision under direct visualization. I then placed the laparoscope through this trocar site and under direct visualization placed a further 12 mm subxiphoid port as well as 2 additional 5 mm ports in the right upper abdomen. The gallbladder was then identified and was noted to be very inflamed, distended, and full of gallstones. Given the amount of distension, the gallbladder was decompressed with an ovarian needle. The patient was noted to have hydrops at this point. I was able to place a grasper at the dome of the gallbladder and this was retracted anterior and cephalad up over the liver. A 2nd retractor was then placed at the infundibulum and retracted laterally, this allowed visualization of the triangle of Calot. I then was able to visualize the cystic duct in its entirety from its proximal insertion into the gallbladder, to its distal junction with the common hepatic/common bile duct junction. At this point, I carefully skeletonized the proximal cystic duct with the [place] dissector. I then clipped and transected the proximal cystic duct. Next I visualized the cystic artery. Again the artery was skeletonized, clipped, and transected. I then used the Bovie cautery to take down the peritoneal attachments of the gallbladder off the liver bed. This was difficult given the amount of inflammation and friability in the posterior space. Once the gallbladder specimen was completely detached, an endo-pouch was placed through the 12 mm port site. I then placed the gallbladder specimen into the Endo pouch and removed the endo-pouch from the 12 mm port site. The specimen will now be sent to pathology for further review. I then copiously irrigated the right upper quadrant. Some mild oozing was noted in the liver bed and this was controlled with the bovie cautery. I then placed some hemostatic powder in the liver bed. Hemostasis was noted in the liver bed, the clips were noted to be in good position on both the cystic duct stump and the cystic artery stump. No other pathology was noted in the right upper quadrant. I then moved the laparoscope to the subxiphoid port. No iatrogenic injury or other pathology was noted in the lower abdomen. I then closed the 12 mm trocar site under direct visualization using the Max cone and 0 Vicryl suture. At this point, the abdomen was desufflated and all ports removed. All port sites were then closed with 4.O Monocryl subcuticular sutures. Dermabond was placed on each incision. The patient tolerated the procedure well, was extubated in the operating room postoperative and will be transferred to the recovery room in stable condition Estimated Blood Loss 20 Drains No Packing No Pathology Yes Complications No immediate complications Condition Stable Disposition PACU [facility] Billing Surgery - Charge Forward: Surgery Bi
[2021-10-04] MEDS: fentaNYL CITRATE INJ (*CRX) 100 MCG/2 ML VIAL 25 MCG IV PUSH ×8 (08:59→09:49)
[2021-10-04] MEDS: ONDANSETRON INJ 4 MG/2 ML VIAL IV PUSH (10:28)
[2021-10-04] MEDS: diphenhydrAMINE HCl INJ 50 MG/ML VIAL 12.5 MG IV PUSH (11:53)
== END 2021-10-04 12:30 | disposition home or self-care (01) ==
PROVIDERS: PCP Internal Medicine; Visit Provider Surgery
PROC: 0FT44ZZ Resection of Gallbladder, Percutaneous Endoscopic Approach (ICD-10-PCS; CPT 47562; principal; 2021-10-04 07:30)
DX: K80.10 Calculus of gallbladder with chronic cholecystitis without obstruction (principal); I10 Essential (primary) hypertension; E11.9 Type 2 diabetes mellitus without complications; M35.00 Sjogren syndrome, unspecified; M34.9 Systemic sclerosis, unspecified; E07.9 Disorder of thyroid, unspecified; J84.9 Interstitial pulmonary disease, unspecified; M15.9 Polyosteoarthritis, unspecified; Z87.891 Personal history of nicotine dependence; Z79.84 Long term (current) use of oral hypoglycemic drugs; Z79.810 Long term (current) use of selective estrogen receptor modulators (SERMs)
CPT/HCPCS: 47562; 36415; 82150; 82948; 86850; 86900; 86901; 88304; 93005; A9270; J0690; J1200; J1885; J2250; J2405; J3010; J7030; J7120

== ENCOUNTER 2021-10-18 10:02 | Outpatient (CLI) | payer MEDICARE, SELFPAY ==
[2021-10-18 10:35] LABS: Basophils Absolute Auto 0.1 K/mm3 (0.0-0.1); Basophils Percent Auto 0.6 % (0.2-1.2); Eosinophils Absolute Auto 0.2 K/mm3 (0-0.3); Eosinophils Percent Auto 2.2 % (0-4.4); Hemoglobin 11.1 g/dL (12.0-15.0); Immature Granulocyte Absolute 0.05 K/mm3 (0.00-0.031); Immature Granulocyte Percent A 0.5 % (0-0.5); Lymphocytes Absolute Auto 1.57 K/mm3 (0.9-3.2); Lymphocytes Percent Auto 16.6 % (18.3-44.2); Mean Corpuscular HGB Conc 33.6 g/dl (32-36); Mean Corpuscular Volume 95.1 fl (80-100); Mean Platelet Volume 9.5 fl (7.4-10.4); Monocytes Absolute Auto 0.5 K/mm3 (0.1-0.6); Monocytes Percent Auto 5.5 % (2.6-8.5); Neutrophils Percent Auto 74.6 % (45.5-73.1); Platelet Count Result 347 k/mm3 (150-375); Red Blood Count 3.47 M/mm3 (4.2-5.4); Red Cell Distribution Width 12.6 % (11.5-14.5); White Blood Count 9.4 K/mm3 (4.5-10.0)
[2021-10-18 10:47] LABS: Alanine Aminotransferase 18 U/L (6-35); Albumin Level 3.8 g/dL (3.5-5.1); Alkaline Phosphatase 59 U/L (38-126); Anion Gap 4 mmol/L (8-16); Aspartate Amino Transferase 41 U/L (14-36); Bilirubin,Total 0.1 mg/dL (0.2-1.3); Blood Urea Nitrogen 10 mg/dL (7-17); Calcium 8.6 mg/dL (8.4-10.2); Carbon Dioxide 28 mmol/L (22-30); Chloride 105 mmol/L (98-107); Estimated Glomerular Filt Rate > 60; Glucose 140 mg/dL (65-110); Sodium 137 mmol/L (137-145)
[2021-10-18 10:51] LABS: CRP < 0.5 mg/dL (<1.0)
[2021-10-18 11:11] LABS: Erythrocyte Sedimentation Rate 86 mm/hr (0-20)
[2021-10-20 04:42] LABS: CA 15-3 15 U/mL (<32)
== END 2021-10-18 10:03 | disposition home or self-care (01) ==
PROVIDERS: PCP Internal Medicine; Referring Provider Internal Medicine Medical Oncology; Visit Provider Internal Medicine
DX: M34.9 Systemic sclerosis, unspecified (principal); C50.811 Malignant neoplasm of overlapping sites of right female breast; Z17.0 Estrogen receptor positive status [ER+]
CPT/HCPCS: 36415; 80053; 85025; 85652; 86140; 86300

== ENCOUNTER 2021-10-21 13:31 | Outpatient (CLI) | payer MEDICARE, SELFPAY ==
--- NOTE | ~2021-10-21 | US_ITS ---
EXAMINATION: US pelvic complete w TV DATE: 10/21/2021 14:51 INDICATION: Postmenopausal bleeding TECHNIQUE: Multiple transabdominal and endovaginal sonographic images of the pelvis were obtained. COMPARISON: 08/11/2020 FINDINGS: The uterus measures 8.6 x 5.1 x 5.7 cm. The endometrial complex measures 17 mm. There appea rs to be a 2.2 cm intramural fibroid in the anterior uterine body. The ovaries are not visualized how ever no adnexal abnormality is seen. There is no free fluid in the pelvis. IMPRESSION: 1. Endometrial thickening which may be due to hyperplasia, polyp, or malignancy. Endometrial sampling is recommended if not previously performed. Reviewed, dictated and finalized at location F. IMPRESSION: 1. Endometrial thickening which may be due to hyperplasia, polyp, or malignancy . Endometrial sampling is recommended if not previously performed.
--- NOTE | 2021-10-22 06:41 | WPDPFTINT ---
PFT Procedure Performed PFT Procedure Performed Spirometry with Pre/Post Bronchodilator Plethysmography (Lung Vol) Diffusing Cap (DLCO) Flow Vol Loop PFT Interpretation This is a pulmonary function test with pre and post-bronchodilator spirometry, plethysmography and diffusing capacity. The test was performed and results interpreted in accordance with the 2019 and 2005 ATS/ERS Task Force guidelines respectively using the Global Lung Function Initiative-2012 reference equations. Patient demonstrated good effort and cooperation. Reproducibility criteria were met. The quality of the pre bronchodilator spirometry maneuver was Grade A and post bronchodilator spirometry maneuver was Grade A. Findings: Spirometry: The contour the inspiratory and expiratory flow tracing are normal. The pre bronchodilator FVC is 1.57 L, 48% predicted. The pre bronchodilator FEV1 is 1.28 L, 51% predicted. The pre bronchodilator FEV1: FVC ratio is 82%. The post bronchodilator FVC is 1.60 L, representing a 2% increase. The post bronchodilator FEV1 is 1.27 L, representing 1% decrease. The post bronchodilator FEV1: FVC ratio 79%. Plethysmography: The total lung capacity is 3.23 L, 59% predicted. The functional residual capacity is 1.29 L, 41% predicted. The residual volume is 1.25 L, 55% predicted. Diffusing capacity: The diffusing capacity unadjusted for hemoglobin and carboxyhemoglobin is 13.7, 62% predicted. The diffusing capacity adjusted for alveolar volume is 4.99, 119% predicted. Impression: There is a moderately severe restrictive ventilatory abnormality. The spirometry is normal without evidence of an obstructive abnormality. There is no significant improvement after inhaling a single dose of albuterol. The diffusing capacity unadjusted for hemoglobin and carboxyhemoglobin is mildly decreased and normalizes when adjusted for alveolar volume. There are no prior studies for comparison
== END 2021-10-21 13:32 | disposition home or self-care (01) ==
PROVIDERS: PCP Internal Medicine; Visit Provider Obstetrics & Gynecology Gynecology
DX: R06.00 Dyspnea, unspecified (principal); N95.0 Postmenopausal bleeding; R94.2 Abnormal results of pulmonary function studies
CPT/HCPCS: 76830; 76856; 94060; 94726; 94729

== ENCOUNTER 2021-10-26 15:02 | Outpatient (CLI) | payer MEDICARE, SELFPAY ==
[2021-10-26 19:48] LABS: Appearance Urine Clear (Clear); Bilirubin Urine Negative (Negative); Blood Urine Negative (Negative); Color Urine Yellow (Yellow); Glucose Urine UA Negative (Negative); Ketones Urine Negative (Negative); Leukocyte Esterase Ur 2+ LEU/UL (Negative); Nitrate Urine Negative (Negative); Protein Urine Negative (Negative); Urobilinogen Urine 0.2 mg/dL (<2.0)
[2021-10-26 19:57] LABS: Squamous Epithelial Cell Urine Occasional /hpf (Few)
[2021-10-26 20:12] LABS: Add Urine Microscopic? YES
== END 2021-10-26 15:03 | disposition home or self-care (01) ==
LOC: ANHLAB 15:05
PROVIDERS: PCP Internal Medicine; Visit Provider Internal Medicine
DX: Z79.899 Other long term (current) drug therapy (principal); M06.9 Rheumatoid arthritis, unspecified
CPT/HCPCS: 81001

== ENCOUNTER 2021-11-17 11:55 | Outpatient (CLI) | payer MEDICARE, SELFPAY ==
[2021-11-17 12:53] LABS: Free T4 Free Thyroxine 1.65 ng/mL (0.78-2.19)
== END 2021-11-17 11:56 | disposition home or self-care (01) ==
PROVIDERS: PCP Internal Medicine; Visit Provider Internal Medicine
DX: E03.9 Hypothyroidism, unspecified (principal)
CPT/HCPCS: 36415; 84439; 84443

== ENCOUNTER 2021-12-15 06:18 | Emergency (ER) | payer MEDICARE, SELFPAY ==
--- NOTE | ~2021-12-15 | XR_ITS ---
EXAMINATION: XR shoulder LT min 2V DATE: 12/15/2021 06:47 INDICATION: Altered mental status. Fall. TECHNIQUE: 1. frontal view of the chest was obtained. 2. 4 views of the left shoulder were obtained. COMPARISON: chest radiograph dated 09/07/2020 FINDINGS:. Chest: Decreased bilateral lung volumes with mild linear discoid atelectasis in the left lower and right mid and lower lung zones. No other airspace opacities, pulmonary edema, pleural effusion or pneumothorax . The cardiomediastinal silhouette is normal. Cholecystectomy clips in right upper quadrant. Or efficiency expert kristi lingular dystrophic calcifications about the right shoulder. Left shoulder: Lateral left clavicle fracture. The lateral sided fragment which includes the articular surface as we ll as the footplate of the coracoclavicular ligament remains normally positioned with mild osteoarthr itis at the acromioclavicular joint. There is 2.5 cm cephalad displacement of the medial side of the fracture. Glenohumeral joint is in normal alignment with mild osteoarthritis IMPRESSION: 1. Mildly decreased lung volumes with mild scattered bilateral discoid atelectasis. 2. Displaced distal left clavicle fracture. Reviewed, dictated and finalized at location A. IMPRESSION: 1. Mildly decreased lung volumes with mild scattered bilateral discoid atelecta sis. 2. Displaced distal left clavicle fracture.
--- NOTE | ~2021-12-15 | XR_ITS ---
EXAMINATION: XR chest 1V portable DATE: 12/15/2021 06:48 INDICATION: Altered mental status. Fall. TECHNIQUE: frontal view of the chest was obtained. COMPARISON: Chest radiograph dated chest radiograph dated 09/07/2020 FINDINGS:. Chest: Decreased bilateral lung volumes with mild linear discoid atelectasis in the left lower and right mid and lower lung zones. No other airspace opacities, pulmonary edema, pleural effusion or pneumothorax . The cardiomediastinal silhouette is normal. Cholecystectomy clips in right upper quadrant. Or state fire marshal kristi lingular dystrophic calcifications about the right shoulder. Left shoulder: Lateral left clavicle fracture. The lateral sided fragment which includes the articular surface as we ll as the footplate of the coracoclavicular ligament remains normally positioned with mild osteoarthr itis at the acromioclavicular joint. There is 2.5 cm cephalad displacement of the medial side of the fracture. Glenohumeral joint is in normal alignment with mild osteoarthritis IMPRESSION: 1. Mildly decreased lung volumes with mild scattered bilateral discoid atelectasis. 2. Displaced distal left clavicle fracture. Reviewed, dictated and finalized at location A. IMPRESSION: 1. Mildly decreased lung volumes with mild scattered bilateral discoid atelecta sis. 2. Displaced distal left clavicle fracture.
--- NOTE | ~2021-12-15 | CT_ITS ---
EXAMINATION: CT brain wo con DATE: 12/15/2021 07:00 INDICATION: Dizziness. Fall. TECHNIQUE: Computed tomography (CT) of the head was performed without intravenous contrast. Sagittal and coronal reconstructions were performed. The mA was adjusted according to patient size. Iterative reconstruction technique was employed. The dose-length product was 605.33 mGy-cm. COMPARISON: None FINDINGS: No calvarial fracture. No acute intracranial hemorrhage, acute infarction or abnormal extra axial flu id collection. There is mild scattered white matter hypoattenuation consistent with chronic small ves senthil ischemic disease. Ventricles are normal and symmetric. No mass/mass effect. Changes of bilateral intraocular lens replacement. The orbits, paranasal sinuses and mastoid air cells are normal. IMPRESSION: 1. Normal aging brain. No acute intracranial process. Reviewed, dictated and finalized at location A.
--- NOTE | ~2021-12-15 | CT_ITS ---
EXAMINATION: CT cervical spine wo con DATE: 12/15/2021 07:00 INDICATION: Neck pain post fall TECHNIQUE: Computed tomography (CT) of the cervical spine was performed without intravenous contrast. Automated exposure control and iterative reconstruction technique were employed. The dose-length pro duct was 234.49 mGy-cm. COMPARISON: None FINDINGS: Alignment is normal. Vertebral body heights are normal. No fracture. Severe disc height loss with fus ion across the uncovertebral joints at C6-C7. Moderate to severe disc height loss at C5-C6, moderate disc height loss at C4-C5 and mild disc height loss at the remaining cervical levels. Severe facet os teoarthritis on the left at C2-C3 and C3-C4. Mild to moderate facet osteoarthritis throughout the rem ainder of the bilateral cervical facet joints. There is also moderate to severe uncovertebral osteoar thritis in the mid to lower cervical spine. Posterior disc osteophyte complexes resulting in mild rogelio tral canal stenosis at C4-C5 through C6-C7. Moderate neural foraminal stenosis on the left at C5-C6. Mild neural foraminal stenosis at multiple additional levels on both the left and right. Atherosclero tic calcification is at the bilateral carotid bulbs which appears potentially hemodynamically signifi cant on the right. Cervical soft tissues are otherwise unremarkable. Mild biapical pleural-parenchyma l scarring. IMPRESSION: 1. Severe lower cervical spine predominant spondylosis. No acute osseous abnormality. 2. Atherosclerotic calcifications at the bilateral carotid bulbs which appears potentially hemodynami juliet significant on the right. Reviewed, dictated and finalized at location A. IMPRESSION: 1. Severe lower cervical spine predominant spondylosis. No acute osseous abnorm ality. 2. Atherosclerotic calcifications at the bilateral carotid bulbs which appears potentially hemodynamically significant on the right.
[2021-12-15 06:18] VITALS: BP 137/64; PULSE 73; RESP 14; TEMP 36.3; O2SAT 92
--- NOTE | 2021-12-15 06:26 | ECG_ITS ---
Measurements Intervals [place] Rate: 71 P: 31 ME: 160 QRS: -10 QRSD: 98 T: 43 QT: 409 QTc: 444 Interpretive Statements SINUS RHYTHM CANNOT RULE OUT ANTERIOR INFARCTION ABNORMAL ECG COMPARED TO ECG 09/30/2021 13:49:23 NO SIGNIFICANT CHANGES Electronically Signed On 12-15-2021 9:39:04 CDT by James Nathan M.D.
--- NOTE | 2021-12-15 06:30 | ED.GENADULT ---
HPI - General Adult General Chief complaint: Fall <Derek Loera DO - Last Filed: 12/15/21 19:17> Stated complaint: GLF SYNCOPAL, POSSIBLE LEFT SHOULDER DISLOCATION <Derek Loera DO - Last Filed: 12/15/21 19:17> Time Seen by Provider: 12/15/21 06:25 <Derek Loera DO - Last Filed: 12/15/21 19:17> Source: RN notes reviewed <Derek Loera DO - Last Filed: 12/15/21 19:17> History of Present Illness HPI narrative: Patient presents emergency department from home via EMS for syncopal episode. Patient states she got up out of bed this morning states she took approximately 2 steps felt lightheaded and awoke on the floor per the the patient struck the ground hard states that she is only out for a brief amount of time patient states that when she awoke she had pain in her left shoulder she states she does not believe she hit her head but is unsure she denies any chest pain shortness of breath abdominal pain nausea vomiting or any other symptoms states her left shoulder hurts to move at this time <Derek Loera DO - Last Filed: 12/15/21 19:17> Related Data Home medications: Home Medications Medication Instructions Recorded Confirmed metformin 500 mg tablet 1,000 mg PO BID 05/03/20 12/13/21 omega-3 fatty acids 1,000 mg 1,000 mg PO DAILY 05/03/20 12/13/21 capsule tamoxifen 20 mg tablet 20 mg PO DAILY 05/03/20 12/13/21 tramadol 50 mg tablet 50 mg PO QID PRN Pain 05/03/20 12/13/21 Lactobacillus acidophilus 10 10,000 mmu cells PO DAILY 09/29/20 12/13/21 billion cell capsule (Probiotic) ascorbic acid (vitamin C) 500 mg 500 mg PO DAILY 09/29/20 12/13/21 tablet,extended release (Vitamin C ER) valsartan 80 mg tablet 80 mg PO QPM 07/18/21 12/13/21 levothyroxine 125 mcg tablet 88 mcg PO QAM 11/25/21 12/13/21 aspirin 81 mg tablet,delayed 81 mg PO DAILY 12/13/21 12/13/21 release (Adult Low Dose Aspirin) multivitamin 1 tablet PO DAILY 12/13/21 12/13/21 <Derek Loera DO - Last Filed: 12/15/21 19:17> Allergies/adverse reactions: Allergies Allergy/AdvReac Type Severity Reaction Status Date / Time iohexol Allergy Severe Rash Verified 12/13/21 09:17 [From contrast - CT, X-RAY] codeine AdvReac Mild Nausea and Verified 12/13/21 09:17 Vomiting <Derek Loera DO - Last Filed: 12/15/21 19:17> Review of Systems Review of Systems: Gen.: Denies fevers or chills Eyes: Denies eye pain or visual change ENT: Denies congestion Respiratory: Denies shortness of breath or cough CV: Denies chest pain or palpitations reports syncope GI: Denies abdominal pain nausea, emesis Musculoskeletal: Reports left shoulder pain Neuro: Denies numbness, tingling, weakness or focal weakness Skin: Denies rash Except as documented, all other systems reviewed and negative <DO Von Cuenca Last Filed: 12/15/21 19:17> [facility] Past Medical History Medical History: Medical History Cancer Diabetes Generalized osteoarthritis of multiple sites HTN (hypertension) Hypercholesterolemia ILD (interstitial lung disease) Nausea and vomiting Postmenopausal bleeding Restrictive lung disease Scleroderma (~2008) Sjogrens syndrome Thyroid disorder <Derek Loera DO - Last Filed: 12/15/21 19:17> Surgical History Surgical History: Surgical History H/O mastectomy H/O pelvic surgery Hx laparoscopic cholecystectomy 10/04/21 <Derek Loera DO - Last Filed: 12/15/21 19:17> Family History Family History: Family History Mother Diabetes mellitus Breast cancer Father Heart disease Grandparent Heart disease Diabetes mellitus Sibling Breast cancer <DO Von Cuenca Last Filed: 12/15/21 19:17> Social History Social History: Social History (Reviewed 12/15/21 @ 06:48 b
[2021-12-15 06:31] VITALS: BP 135/56; PULSE 70
[2021-12-15 06:35] VITALS: BP 126/74; BP 128/74; PULSE 75; PULSE 88
[2021-12-15 06:40] LABS: Basophils Absolute Auto 0.1 K/mm3 (0.0-0.1); Basophils Percent Auto 0.5 % (0.2-1.2); Eosinophils Absolute Auto 0.4 K/mm3 (0-0.3); Eosinophils Percent Auto 4.7 % (0-4.4); Hematocrit 35.6 % (37.0-47.0); Hemoglobin 11.6 g/dL (12.0-15.0); Immature Granulocyte Absolute 0.03 K/mm3 (0.00-0.031); Immature Granulocyte Percent A 0.3 % (0-0.5); Lymphocytes Percent Auto 40.5 % (18.3-44.2); Mean Corpuscular HGB Conc 32.6 g/dl (32-36); Mean Corpuscular Hemoglobin 32.1 pg (26-34); Mean Corpuscular Volume 98.6 fl (80-100); Monocytes Absolute Auto 0.8 K/mm3 (0.1-0.6); Neutrophils Absolute Auto 4.3 K/mm3 (1.3-6.7); Platelet Count Result 230 k/mm3 (150-375); Red Blood Count 3.61 M/mm3 (4.2-5.4); Red Cell Distribution Width 13.1 % (11.5-14.5); White Blood Count 9.4 K/mm3 (4.5-10.0)
[2021-12-15 06:51] LABS: Alanine Aminotransferase 20 U/L (6-35); Albumin Level 3.7 g/dL (3.5-5.1); Alkaline Phosphatase 44 U/L (38-126); Anion Gap 10 mmol/L (8-16); Aspartate Amino Transferase 42 U/L (14-36); Bilirubin,Total 0.6 mg/dL (0.2-1.3); Blood Urea Nitrogen 19 mg/dL (7-17); Calcium 8.5 mg/dL (8.4-10.2); Carbon Dioxide 23 mmol/L (22-30); Chloride 101 mmol/L (98-107); Estimated CRCL calculation 64 ml/min; Estimated Glomerular Filt Rate > 60; Glucose 149 mg/dL (65-110); Potassium 4.3 mmol/L (3.4-5.0); Sodium 134 mmol/L (137-145)
[2021-12-15 06:53] LABS: INR 1.1; Prothrombin Time 13.8 Seconds (11.1-14.7)
[2021-12-15 06:54] LABS: Partial Thromboplastin Time 28.9 SECONDS (22.3-36.8)
[2021-12-15 07:01] LABS: Troponin I < 0.012 ng/mL (0.000-0.034)
[2021-12-15 07:22] LABS: Appearance Urine Clear (Clear); Bilirubin Urine Negative (Negative); Blood Urine Negative (Negative); Color Urine Yellow (Yellow); Glucose Urine UA Negative (Negative); Ketones Urine 1+ mg/dL (Negative); Leukocyte Esterase Ur 1+ LEU/UL (Negative); Nitrate Urine Negative (Negative); Protein Urine Negative (Negative); Urobilinogen Urine 0.2 mg/dL (<2.0); pH Urine 5.5 (5.0-9.0)
[2021-12-15 07:43] LABS: Mucus Urine Rare /lpf; Squamous Epithelial Cell Urine Many /hpf (Few); Transitional Epi Cells Urine Rare /hpf (None Seen)
[2021-12-15] MEDS: SODIUM CHLORIDE 0.9% IV 1,000 ML 999 ML IV CONT (07:43)
[2021-12-15 08:00] LABS: Add Urine Microscopic? YES
--- NOTE | 2021-12-15 08:46 | PC.NURSE ---
nelly finnfran 4mg ivp erp travis connolly
[2021-12-15] MEDS: fentaNYL CITRATE INJ (*CRX) 100 MCG/2 ML VIAL 50 MCG IV PUSH (08:50)
[2021-12-15] MEDS: ONDANSETRON INJ 4 MG/2 ML VIAL IV PUSH (08:50)
[2021-12-15 09:43] VITALS: BP 129/69; PULSE 78; RESP 18; O2SAT 98
== END 2021-12-15 09:45 | disposition home or self-care (01) ==
PROVIDERS: Emergency Provider Emergency Medicine; PCP Internal Medicine
DX: R55 Syncope and collapse (principal); S42.032A Displaced fracture of lateral end of left clavicle, initial encounter for closed fracture; I10 Essential (primary) hypertension; E11.9 Type 2 diabetes mellitus without complications; E78.00 Pure hypercholesterolemia, unspecified; J84.9 Interstitial pulmonary disease, unspecified; M34.9 Systemic sclerosis, unspecified; M35.00 Sjogren syndrome, unspecified; E07.9 Disorder of thyroid, unspecified; Z90.10 Acquired absence of unspecified breast and nipple; Z87.891 Personal history of nicotine dependence; Z79.82 Long term (current) use of aspirin; Z79.84 Long term (current) use of oral hypoglycemic drugs; R94.31 Abnormal electrocardiogram [ECG] [EKG]; M47.812 Spondylosis without myelopathy or radiculopathy, cervical region; W18.39XA Other fall on same level, initial encounter
CPT/HCPCS: 36415; 70450; 71045; 72125; 73030; 80053; 81001; 84484; 85025; 85610; 85730; 87077; 87086; 87186; 93005; 96361; 96374; 96375; 99284; A4565; J2405; J3010; J7030

== ENCOUNTER 2022-01-04 09:09 | Outpatient (CLI) | payer MEDICARE, SELFPAY ==
--- NOTE | ~2022-01-04 | US_ITS ---
EXAMINATION: US carotid duplex BI DATE: 01/04/2022 09:51 INDICATION: Carotid atherosclerosis and stenosis. Coronary artery disease involving the [place] arteries. TECHNIQUE: Grayscale, color Doppler, and pulsed Doppler images of the cervical carotid arteries were obtained. The degree of vessel stenosis is placed in one of the following categories: normal, <50%, 5 0-69%, >=70% but less than near-occlusion, near-occlusion, or total occlusion. Note that percent sten osis relative to normal distal artery lumen diameter is indirectly measured from velocity measurement s as described by Fabricio, et al. Radiology 2003; 229:340-346. COMPARISON: 05/20/2018 FINDINGS: RIGHT: The right common carotid artery (CCA) peak systolic velocity (PSV) is 103 cm/s. The right internal ca rotid artery (ICA) PSV is 148 cm/s. The right ICA end-diastolic velocity (EDV) is 35 cm/s. The right ICA/CCA PSV ratio is 1.4. Grayscale and color Doppler images yield an estimate of 50-69% diameter red uction from plaque in the ICA. The external carotid artery (ECA) PSV is 148 cm/s. There is antegrade flow in the right vertebral artery. LEFT: The left CCA PSV is 91 cm/s. The left ICA PSV is 115 cm/s. The left ICA EDV is 44 cm/s. The left ICA/ CCA PSV ratio is 1.3. Grayscale and color Doppler images yield an estimate of <50% diameter reduction from plaque in the ICA. The ECA PSV is 109 cm/s. There is antegrade flow in the left vertebral arter y. IMPRESSION: 1. 50-69% stenosis in the right internal carotid artery. 2. <50% stenosis in the left internal carotid artery. Reviewed, dictated and finalized at location A.
== END 2022-01-04 09:10 | disposition home or self-care (01) ==
LOC: ANHIMG 09:12
PROVIDERS: PCP Internal Medicine; Visit Provider Nurse Practitioner Adult Health
DX: I25.10 Atherosclerotic heart disease of native coronary artery without angina pectoris (principal); E11.69 Type 2 diabetes mellitus with other specified complication; E78.2 Mixed hyperlipidemia; I65.23 Occlusion and stenosis of bilateral carotid arteries
CPT/HCPCS: 93880

== ENCOUNTER 2022-01-26 10:46 | Outpatient (CLI) | payer MEDICARE, SELFPAY ==
[2022-01-26 11:33] LABS: Anion Gap 12 mmol/L (8-16); Blood Urea Nitrogen 11 mg/dL (7-17); Calcium 8.6 mg/dL (8.4-10.2); Carbon Dioxide 27 mmol/L (22-30); Chloride 100 mmol/L (98-107); Estimated Glomerular Filt Rate > 60; Glucose 142 mg/dL (65-110); Potassium 4.9 mmol/L (3.4-5.0); Sodium 139 mmol/L (137-145)
== END 2022-01-26 10:47 | disposition home or self-care (01) ==
LOC: ANHSURGERY 10:55
PROVIDERS: Anesthesiology; PCP Internal Medicine; Visit Provider Obstetrics & Gynecology Gynecology
DX: E11.9 Type 2 diabetes mellitus without complications (principal); Z01.818 Encounter for other preprocedural examination
CPT/HCPCS: 36415; 80048

== ENCOUNTER 2022-01-30 02:10 | Day surgery (SDC) | payer MEDICARE, SELFPAY ==
--- NOTE | 2021-12-13 09:30 | PC.NURSE ---
Report to the Outpatient Waiting Room, entrance under the green pavilion located off [facility], at time _0845 on date __12/19/21 . OR Time: _1045 . - You and your visitor will be asked to self-screen and do not enter if you have any COVID symptoms. - Only one visitor and NO children visitors are allowed at this time. - The patient visitor is requested to leave or wait in car when not with patient due to restrictions. - A mask is required within the hospital. Patients may have clear liquids (water, carbonated beverages, clear teas, apple juice) until 3 hours prior to surgery with a maximum of 20 ounces. - No food from midnight until time of surgery - Infants may have breast milk until 4 hours before surgery, infant formula 6 hours prior to surgery. - Children will be allowed to drink immediately following surgery. If applicable, please bring a bottle or sippy cup to assist with drinking. Juice, water, soda, and popsicles are readily available. For infants on formula, please bring formula the day of surgery. Pacifiers are allowed. Take the following medications with a SIP of water the morning of surgery: _LEVOTHYROXINE Medications to discontinue per physician ____ALL VITAMINS AND SUPPLEMENTS 3 DAYS PRE OP__. ASPIRIN PER DR POLLARD Date to take last dose___12/15/21 Please no make-up, nail persian, hairspray, perfume, deodorant, or body powder the day of surgery. No jewelry (including any body piercings) or valuables the day of surgery, leave them at home. Please take a shower or bath the night before, or the morning of, surgery with an antibacterial soap. Wear comfortable, loose fitting clothing. Children are encouraged to wear pajamas. - Jewelry must be removed prior to entering the operating room. Rings and piercings that are not removed may be cut off. - The hospital will not accept responsibility for valuables. - Please leave all valuables, including medications, at home the day of surgery. If you are going home after surgery, a licensed petrol tanker driver must drive you home. - NO public transportation without another adult. - We recommend that an adult stay with you for 24 hours following discharge. - We also recommend that you do not drive, make important decision, drink alcoholic beverages, or take any drugs that were not prescribed by your health care provider for at least 24 hours after your discharge time. For Pediatric surgeries, we recommend two adults accompany the child home (only one inside the building at this time). Follow any additional instructions given to you from your surgeon. If you or anyone in your household have experienced Covid symptoms in the past week, please notify your surgeon or the nurse liaison at the phone number below for possible testing. Telephone instructions given to _PATIENT and asked if any additional questions and then verbalized understanding. Patient advised to call surgeon office or pre surgery nurse liaison [phone] if any additional questions.
[2021-12-13 09:36] VITALS: BMI 24.9
--- NOTE | 2022-01-24 09:45 | PC.NURSE ---
PRE-OP INSTRUCTIONS, PLEASE READ CAREFULLY Report to the Outpatient Waiting Room, entrance under the green pavilion located off [facility], at time _0745_ on date _01/30/22_. OR Time: _0945_. Time changes happen often and if your time is changed the preop area will call you the afternoon before. - You and your visitor will be asked to self-screen and do not enter if you have any COVID symptoms. - Only one visitor and NO children visitors are allowed at this time. - The patient visitor is requested to leave or wait in car when not with patient due to restrictions. - A mask is required within the hospital. Patients may have clear liquids (water, carbonated beverages, clear teas, apple juice) until 3 hours prior to surgery (0645 AM) with a maximum of 20 ounces. - No food from midnight until time of surgery Take the following medications with a SIP of water the morning of surgery: _LEVOTHYROXINE_ Medications to discontinue ASPIRIN PER DR. ARMSTRONG, VITAMINS AND SUPPLEMENTS 3 DAYS PRIOR TO SURGERY, Date to take last dose 01/26/22_ Please no make-up, nail luxembourgish, hairspray, perfume, deodorant, or body powder the day of surgery. No jewelry (including any body piercings) or valuables the day of surgery, leave them at home. Please take a shower or bath the night before, or the morning of, surgery with an antibacterial soap. Wear comfortable, loose fitting clothing. - Jewelry must be removed prior to entering the operating room. Rings and piercings that are not removed may be cut off. - The hospital will not accept responsibility for valuables. - Please leave all valuables, including medications, at home the day of surgery. If you are going home after surgery, a licensed restaurant delivery driver must drive you home. - NO public transportation without another adult. - We recommend that an adult stay with you for 24 hours following discharge. - We also recommend that you do not drive, make important decision, drink alcoholic beverages, or take any drugs that were not prescribed by your health care provider for at least 24 hours after your discharge time. Follow any additional instructions given to you from your surgeon. If you or anyone in your household have experienced Covid symptoms in the past week, please notify your surgeon or the nurse liaison at the phone number below for possible testing. Telephone instructions given to ___PT and asked if any additional questions and then verbalized understanding. Patient advised to call surgeon office or pre surgery nurse liaison [phone] if any additional questions.
[2022-01-24 09:50] VITALS: BMI 24.9
--- NOTE | 2022-01-30 07:57 | WPDHPUPDATE1 ---
History and Physical Update Update Date/Time: 01/30/22 07:57 History and Physical has been reviewed, including an updated exam of the patient. There are NO changes in the patient's condition. Risks, benefits, and alternatives have been discussed and questions answered. Patient agrees to proceed with procedure.
--- NOTE | 2022-01-30 07:57 | PM.HPGS ---
History of Present Illness History of Present Illness Consent: Risks, benefits, and alternatives have been discussed and questions answered. Patient agrees to proceed with procedure. Chief complaint: post menopausal bleeding Narrative: Rosi Flaherty is a 66 year old female patient with postmenopausal bleeding in August of 2021. Patient with a history endometrial polyps in September of 2020. The patient was seen September 13, 2021 where a pelvic ultrasound was ordered. The patient did not perform pelvic ultrasound until October 21, 2021. Pelvic ultrasound reveals the endometrium to be quite thickened at 17mm. The patient was initially scheduled and has been rescheduled 3 times for D&C hysteroscopy. Risks of infection, bleeding, perforation, and possible pathology are reviewed. Patient voiced understanding and agrees to proceed. Review of Systems Review of Systems: not repeated day of surgery; patient states no changes in status [facility] Past Medical History Medical History (Updated 01/30/22 @ 08:03 by Yvette Moser MD) Claustrophobia Diabetes Generalized osteoarthritis of multiple sites History of breast cancer HTN (hypertension) Hypercholesterolemia Hypothyroid ILD (interstitial lung disease) Nausea and vomiting (normal spontaneous vaginal delivery) x3 Postmenopausal bleeding Restrictive lung disease Rheumatoid arthritis Scleroderma (~2008) Sjogrens syndrome Unintentional weight loss Surgical History Surgical History (Updated 01/30/22 @ 08:03 by Yvette Moser MD) H/O mastectomy ~[address] Orion Gilliland H/O pelvic surgery Hysteroscopy D&C [address] Herrera history of D&C 2010 Hx laparoscopic cholecystectomy 10/04/[address] Sanchez Family History Family History Mother Diabetes mellitus Breast cancer Father Heart disease Grandparent Heart disease Diabetes mellitus Sibling Breast cancer Other Arthritis Social History Social History Smoking packs per day: 0.5 Smoking cigarettes per day: 10.0 Years smoked: 15 Smoking pack-years: 7.50 Smoking status: Former smoker Tobacco type: cigarettes Smoking end date: 04/30/86 Alcohol intake: never Substance use: never Substance use type: does not use Living arrangements: with family Additional living arrangements comments: HUSB Gender identity (if verbalized by the patient): Female Spiritual care concerns: No Meds Home Medications and Allergies Home Medications Medication Instructions Recorded Confirmed Type metformin 500 mg tablet 1,000 mg PO BID 05/03/20 01/20/22 History omega-3 fatty acids 1,000 mg 1,000 mg PO DAILY 05/03/20 01/20/22 History capsule tamoxifen 20 mg tablet 20 mg PO DAILY 05/03/20 01/20/22 History Lactobacillus acidophilus 10 10,000 mmu cells PO DAILY 09/29/20 01/20/22 History billion cell capsule (Probiotic) ascorbic acid (vitamin C) 500 mg 500 mg PO DAILY 09/29/20 01/20/22 History tablet,extended release (Vitamin C ER) valsartan 80 mg tablet 80 mg PO QPM 07/18/21 01/20/22 History levothyroxine 125 mcg tablet 88 mcg PO QAM 11/25/21 01/20/22 History aspirin 81 mg tablet,delayed 81 mg PO DAILY 12/13/21 01/20/22 History release (Adult Low Dose Aspirin) multivitamin 1 tablet PO DAILY 12/13/21 01/20/22 History nystatin 100,000 unit/gram topical 1 applic topical BID #30 grams 01/20/22 01/24/22 Rx powder Allergies Allergy/AdvReac Type Severity Reaction Status Date / Time iohexol Allergy Severe Rash Verified 01/20/22 10:11 [From contrast - CT, X-RAY] codeine AdvReac Mild Nausea and Verified 01/20/22 10:11 Vomiting Exam Const: General: healthy appearing and alert Orientation/consciousness: patient oriented x3 GI: GI Palp: Yes Soft to palpation, No Tenderness to palpation present (GI) and No Palpable mass present : External Female Exam: normal
[2022-01-30 08:40] VITALS: BP 144/62; PULSE 73; RESP 14; TEMP 36.7; O2SAT 100
[2022-01-30] MEDS: LACTATED RINGERS 1,000 ML 30 ML IV CONT (08:40)
[2022-01-30] MEDS: ACETAMINOPHEN 500 MG TABLET 1000 MG PO (08:40)
--- NOTE | 2022-01-30 08:53 | WPDANESEPPF ---
Anes - Initial Pre Proc Eval Procedure: Operation Date: 01/30/22 09:45 Proposed Procedures p Hysteroscopy Dilation and Curettage - Yvette Moser MD Date/Time: 01/30/22 08:53 Surgeon: Yvette Moser MD Pre Op Diagnosis: post menopausal bleeding Patient Data Age: 66 Gender: F Height: 1.7 m Weight: 72.15 kg Allergies Allergy/AdvReac Type Severity Reaction Status Date / Time iohexol Allergy Severe Rash Verified 01/20/22 10:11 [From contrast - CT, X-RAY] codeine AdvReac Mild Nausea and Verified 01/20/22 10:11 Vomiting Home Medications Medication Instructions Recorded Confirmed Type metformin 500 mg tablet 1,000 mg PO BID 05/03/20 01/20/22 History omega-3 fatty acids 1,000 mg 1,000 mg PO DAILY 05/03/20 01/20/22 History capsule tamoxifen 20 mg tablet 20 mg PO DAILY 05/03/20 01/20/22 History Lactobacillus acidophilus 10 10,000 mmu cells PO DAILY 09/29/20 01/20/22 History billion cell capsule (Probiotic) ascorbic acid (vitamin C) 500 mg 500 mg PO DAILY 09/29/20 01/20/22 History tablet,extended release (Vitamin C ER) valsartan 80 mg tablet 80 mg PO QPM 07/18/21 01/20/22 History levothyroxine 125 mcg tablet 88 mcg PO QAM 11/25/21 01/20/22 History aspirin 81 mg tablet,delayed 81 mg PO DAILY 12/13/21 01/20/22 History release (Adult Low Dose Aspirin) multivitamin 1 tablet PO DAILY 12/13/21 01/20/22 History nystatin 100,000 unit/gram topical 1 applic topical BID #30 grams 01/20/22 01/24/22 Rx powder Patient hx anesthesia problems: none Family hx anesthesia problems: none Results Review: All pre-operative results and documents have been reviewed as part of the pre-operative evaluation. [facility] Past Medical History Medical History Claustrophobia Diabetes Generalized osteoarthritis of multiple sites History of breast cancer HTN (hypertension) Hypercholesterolemia Hypothyroid ILD (interstitial lung disease) Nausea and vomiting Postmenopausal bleeding Restrictive lung disease Rheumatoid arthritis Scleroderma (~2008) Sjogrens syndrome Unintentional weight loss Surgical History Surgical History H/O mastectomy ~[address] Orion Gilliland H/O pelvic surgery Hysteroscopy D&C [address] Herrera history of D&C 2011 Hx laparoscopic cholecystectomy 10/04/[address] Sanchez Family History Family History Mother Diabetes mellitus Breast cancer Father Heart disease Grandparent Heart disease Diabetes mellitus Sibling Breast cancer Other Arthritis Social History Social History Smoking packs per day: 0.5 Smoking cigarettes per day: 10.0 Years smoked: 15 Smoking pack-years: 7.50 Smoking status: Former smoker Tobacco type: cigarettes Smoking end date: 04/30/86 Alcohol intake: never Substance use: never Substance use type: does not use Living arrangements: with family Additional living arrangements comments: EDEL Gender identity (if verbalized by the patient): Female Spiritual care concerns: No Anes - Eval Final PreProcedure Day of Procedure 01/30/22 08:53 Patient weight: normal Heart: regular rate and rhythm Lungs: decreased breath sounds Airway: Mallampati scale class II Neurological: alert and oriented Last oral intake: >/= 8 hours ASA classification: III Emergent: no Anesthetic plan: proceed Anesthesia type and monitoring: general GIVS and standard monitoring Results Review: All pre-operative results and documents have been reviewed as part of the pre-operative evaluation. Informed Consent: The patient's anesthetic plan and its attendant risks and benefits were discussed with the patient/family/POA. Questions were solicited and answers provided to the satisfaction of the patient/fami
[2022-01-30 09:00] LABS: Glucose Point of Care 144 mg/dl (65-105)
[2022-01-30] MEDS: LIDOCAINE HCL 1% PF 30 ML VIAL 10 ML INFILTRATE (09:35)
--- NOTE | 2022-01-30 10:02 | P.OP_ITS ---
Procedure Note - Detailed Date of Procedure 01/30/22 Pre-op Diagnosis post menopausal bleeding Post-op Diagnosis Same Procedure Performed D&C hysteroscopy with MyoSure resection of polyps Surgeon Yvette Moser MD Anesthesia MAC and Local Findings Uterus sounds to 8cm. There was a very large anterior polyp filling 2/3 the cavity. There was a sessile posterior polyp. Atrophic endometrium. Description of Procedure The patient is taken to the operating room and placed under anesthesia in the dorsal lithotomy position. She was prepped and draped in the usual sterile fashion. [place] speculum was placed in the vagina and the cervix grasped on the anterior lip with a tenaculum. The cervix was injected in each quadrant with 1% lidocaine. This uterus is sounded to 8cm. The cervix is serially dilated with Hegar to an 8. The diagnostic hysteroscope was placed with the above-stated findings. The MyoSure device is opened and placed and under direct visualization the polyps are removed in their entirety and the endometrial wall is smoothed until flat. The hysteroscope was then removed and the medium sharp curette used to curette the endometrium. Minimal materials obtained consistent with the remainder of the endometrium appearing atrophic. Estimated Blood Loss 5 Drains No Packing No Pathology Yes (Endometrial shavings and curettings) Complications No immediate complications Condition Stable Disposition PACU
[2022-01-30 10:04] VITALS: BP 133/71; PULSE 84; RESP 16; O2SAT 98
[2022-01-30 10:20] LABS: Glucose Point of Care 131 mg/dl (65-105)
[2022-01-30 10:34] VITALS: BP 141/77; PULSE 68; RESP 16; O2SAT 98
[2022-01-30 11:02] VITALS: BP 142/77; PULSE 72; RESP 16
== END 2022-01-30 11:10 | disposition home or self-care (01) ==
PROVIDERS: PCP Internal Medicine; Visit Provider Obstetrics & Gynecology Gynecology
PROC: 0U5B8ZZ Destruction of Endometrium, Via Natural or Artificial Opening Endoscopic (ICD-10-PCS; CPT 58563; principal; 2022-01-30 09:45)
DX: N95.0 Postmenopausal bleeding (principal); N84.0 Polyp of corpus uteri; I10 Essential (primary) hypertension; E11.9 Type 2 diabetes mellitus without complications; E78.00 Pure hypercholesterolemia, unspecified; E03.9 Hypothyroidism, unspecified; J84.9 Interstitial pulmonary disease, unspecified; M06.9 Rheumatoid arthritis, unspecified; M35.00 Sjogren syndrome, unspecified; M34.9 Systemic sclerosis, unspecified; Z87.891 Personal history of nicotine dependence; Z79.84 Long term (current) use of oral hypoglycemic drugs; Z79.82 Long term (current) use of aspirin; Z79.810 Long term (current) use of selective estrogen receptor modulators (SERMs)
CPT/HCPCS: 58558; 36415; 80048; 82948; 88305; A9270; J1100; J2250; J2405; J2704; J3010; J7030; J7120

== ENCOUNTER 2022-03-06 11:37 | Outpatient (CLI) | payer MEDICARE, SELFPAY ==
[2022-03-06 12:22] LABS: Basophils Absolute Auto 0.1 K/mm3 (0.0-0.1); Basophils Percent Auto 0.9 % (0.2-1.2); Eosinophils Absolute Auto 0.2 K/mm3 (0-0.3); Eosinophils Percent Auto 2.6 % (0-4.4); Hemoglobin 11.8 g/dL (12.0-15.0); Immature Granulocyte Absolute 0.02 K/mm3 (0.00-0.031); Immature Granulocyte Percent A 0.3 % (0-0.5); Lymphocytes Absolute Auto 1.64 K/mm3 (0.9-3.2); Mean Corpuscular HGB Conc 32.8 g/dl (32-36); Mean Corpuscular Volume 97.6 fl (80-100); Mean Platelet Volume 10.5 fl (7.4-10.4); Monocytes Absolute Auto 0.6 K/mm3 (0.1-0.6); Monocytes Percent Auto 8.5 % (2.6-8.5); Neutrophils Absolute Auto 4.3 K/mm3 (1.3-6.7); Neutrophils Percent Auto 63.7 % (45.5-73.1); Platelet Count Result 253 k/mm3 (150-375); Red Blood Count 3.69 M/mm3 (4.2-5.4); Red Cell Distribution Width 12.9 % (11.5-14.5); White Blood Count 6.8 K/mm3 (4.5-10.0)
[2022-03-06 12:23] LABS: Appearance Urine Clear (Clear); Bilirubin Urine Negative (Negative); Blood Urine Negative (Negative); Color Urine Yellow (Yellow); Glucose Urine UA Negative (Negative); Ketones Urine Negative (Negative); Leukocyte Esterase Ur Negative LEU/UL (Negative); Nitrate Urine Negative (Negative); Protein Urine Negative (Negative); Specific Grav Ur 1.015 (1.001-1.035); Urobilinogen Urine 0.2 mg/dL (<2.0); pH Urine 6.5 (5.0-9.0)
[2022-03-06 12:40] LABS: Alanine Aminotransferase 28 U/L (6-35); Albumin Level 4.2 g/dL (3.5-5.1); Alkaline Phosphatase 59 U/L (38-126); Anion Gap 15 mmol/L (8-16); Aspartate Amino Transferase 54 U/L (14-36); Bilirubin,Total 0.5 mg/dL (0.2-1.3); Blood Urea Nitrogen 13 mg/dL (7-17); CRP < 0.5 mg/dL (<1.0); Calcium 9.2 mg/dL (8.4-10.2); Carbon Dioxide 27 mmol/L (22-30); Chloride 98 mmol/L (98-107); Estimated Glomerular Filt Rate > 60; Glucose 149 mg/dL (65-110); Potassium 5.2 mmol/L (3.4-5.0); Sodium 140 mmol/L (137-145)
[2022-03-06 13:02] LABS: Erythrocyte Sedimentation Rate 25 mm/hr (0-20)
[2022-03-06 13:42] LABS: Add Urine Microscopic? NO
== END 2022-03-06 11:38 | disposition home or self-care (01) ==
LOC: ANHLAB 11:41
PROVIDERS: PCP Internal Medicine; Visit Provider Internal Medicine
DX: J84.9 Interstitial pulmonary disease, unspecified (principal); M15.9 Polyosteoarthritis, unspecified; M34.9 Systemic sclerosis, unspecified
CPT/HCPCS: 36415; 80053; 81001; 81003; 85025; 85652; 86140

== ENCOUNTER → 2022-05-12 11:13 | Outpatient (CLI) | payer MEDICARE, SELFPAY ==
--- NOTE | ~2022-05-12 | DEXA_ITS ---
Bone Density Report Name: RICKY CURRIE Age: 66 Sex: Female Ethnicity: White Date of : 1955 Indication: postmenopausal; screening for osteoporosis; height loss; prior fracture; cancer; rheumatoid arthritis; Referring Provider: Rolanda, Gibran Varela Study: Bone densitometry was performed. Exam Date: May 12, 2022 Accession number: [id number] Bone Density: Region BMD T-score Z-score Classification AP Spine (L1-L4) 1.081 0.3 2.3 Normal Femoral Neck (Left) 0.655 -1.7 0.0 Osteopenia Total Hip (Left) 0.864 -0.6 0.8 Normal Femoral Neck (Right) 0.657 -1.7 0.0 Osteopenia Total Hip (Right) 0.885 -0.5 0.9 Normal Total Hip Mean 0.875 -0.6 0.9 Normal World Health Organization criteria for BMD impression classify patients as: Normal (T-score at or above -1.0), Osteopenia (T-score between -1.0 and -2.5), or Osteoporosis (T-score at or below -2.5). 10-year Fracture Risk(1): Major Osteoporotic Fracture 21% Hip Fracture 3.4% Reported Risk Factors: [place] (), Neck BMD=0.657, BMI=26.3, previous fracture, rheumatoid arthritis (1) FRAX(R) Version 3.08. Fracture probability calculated for an untreated patient. Fracture probability may be lower if the patient has received treatment. Clinical Information Provided by Patient: Has had a low trauma fracture Has rheumatoid arthritis Has the following medical conditions: Cancer Patient maximum height was 67 Menopause Age: 51 No regular weight bearing exercise Does not regularly consume dairy products Drinks caffeinated beverages Onset of menses at age 10 Number of children 3 Impression: The patient has low bone mass, based on the Left Femoral Neck T-score. The patient has an estimated ten-year risk of hip fracture of 3.4% and an estimated ten-year risk of major fracture of 21%, based on the WHO FRAX algorithm. The patient has risk factors, including: previous fracture. Discussion: BONE DENSITY IS LOW AT ONE OR MORE SKELETAL SITES. THE PATIENT'S BMD AND CLINICAL RISK FACTORS CONTRIBUTE TO THIS PATIENT'S HIGH RISK OF FRACTURE. This patient's lowest T-score is low at one or more skeletal sites. It meets the World Health Organization's (WHO) criteria for ?low bone mass? (T-score between -1.0 and -2.5). The patient's 10-year risk of hip fracture and 10 year risk of a major osteoporotic fracture as calculated by FRAX exceeds the threshold where pharmacological therapy is recommended by the National Osteoporosis Foundation (NOF). However, all treatment decisions require clinical judgment and consideration of individual patient factors, including patient preferences, comorbidities, previous drug use, risk factors not captured in the FRAX model (e.g., frailty, falls, vitamin D deficiency, increased bone turnover, interval significant decline in bone densi
== END ==
PROVIDERS: PCP Internal Medicine; Visit Provider Internal Medicine
DX: M81.0 Age-related osteoporosis without current pathological fracture (principal); E03.9 Hypothyroidism, unspecified; E11.69 Type 2 diabetes mellitus with other specified complication; M85.852 Other specified disorders of bone density and structure, left thigh; M85.851 Other specified disorders of bone density and structure, right thigh; E78.2 Mixed hyperlipidemia; C50.811 Malignant neoplasm of overlapping sites of right female breast; Z17.0 Estrogen receptor positive status [ER+]; M35.1 Other overlap syndromes; K74.60 Unspecified cirrhosis of liver
CPT/HCPCS: 77080

== ENCOUNTER 2022-09-18 12:30 | Outpatient (RCR) | payer MEDICARE, SELFPAY ==
--- NOTE | 2022-08-21 15:26 | PTOPEVAL1 ---
Assessment and note entered by Codey Sanders, PT Evaluation Information Assessment Status Evaluation Diagnosis back pain, shoulder pain Subjective Information Patient reports having back pain for 16 years. She has done physical therapy and seen chiropractors before this evaluation, none in the last 5 years. Patient reports the back pain is not radiating. Besides the back she has issues throughout her body secondary to autoimmune diseases. pain in sleeping with her shoulders, but she reports if she uses a pillow under her armpits it does not hurt. Would like to use a 4 wheeled walker and reports her back does not hurt when using an assistive device, but her and doctor do not want her to use it. Reports she has three ruined discs in her back. Reported Pain Level Pain Score 1: Self Report Assessment PT Clinical Summary Rosi is a 66 year old female coming into the clinic with a diagnosis of back and shoulder pain. Patient would like to focus just on the back. Patient has weakness in the core and hips along with decreased mobility in the individual segment of the spinal column. Physical therapy will work on improving strength and mobility in the spine and functional. The patient would like to use a walker to improve functional independence and feel it is a good idea. Plan of Care Interventions Electrical Stimulation,Gait Training,Hot Pack/Cold Pack,Manual Therapy,Neuro Re-education,Patient/ Caregiver Education,Therapeutic Activities, Therapeutic Exercise,Ultrasound Other Interventions taping, cupping, IASTM. PT Services Indicated Yes Treatment Frequency and 1x/wk for 4 weeks Duration These treatments will address the objective and functional deficits as defined above. The patient will be advanced safely and appropriately in order for the patient to progress towards his/her prior level of function. Additional exercises will be introduced and as well as a comprehensive home exercise program upon discharge, if needed, ?to ensure carryover of functional gains achieved in the clinic. This treatment plan has been reviewed and agreement upon by the patient.
--- NOTE | 2022-09-18 13:01 | PTOPDC ---
Assessment and note entered by Codey Sanders, PT Evaluation Information Assessment Status Discharge Diagnosis back pain Onset Chronic Subjective Information Patient reports she is trying to work harder on sitting and standing up with better posture. The patient states going to her grandchild's dance recital over the weekend strangers had to help her up the bleachers. No reports of change in the back. Reported Pain Level Pain Score 8: Self Report Assessment PT Clinical Summary Rosi is a 66 year old female coming into the clinic with a diagnosis of back pain. She was evaluated on 08/21/22 and attended 5 sessions of physical therapy. Patient has improvement in her strength and functional mobility, but no change in back pain. At this time recommend return to doctor for possible imaging and less conservative treatments if warranted after MRI. Discharged from physical therapy with [facility]. Plan of Care PT Services Indicated No
== END 2022-09-18 14:13 | disposition home or self-care (01) ==
LOC: ANHPT 12:30
PROVIDERS: PCP Internal Medicine; Visit Provider Internal Medicine
DX: M54.9 Dorsalgia, unspecified (principal); M25.519 Pain in unspecified shoulder
CPT/HCPCS: 97110; 97161; 97530

== ENCOUNTER 2022-10-16 13:40 | Outpatient (CLI) | payer MEDICARE, SELFPAY ==
[2022-10-16 14:34] LABS: Hematocrit 38.8 % (37.0-47.0); Hemoglobin 12.6 g/dL (12.0-15.0); Mean Corpuscular HGB Conc 32.5 g/dl (32-36); Mean Corpuscular Hemoglobin 32.2 pg (26-34); Mean Corpuscular Volume 99.2 fl (80-100); Mean Platelet Volume 10.3 fl (7.4-10.4); Platelet Count Result 290 k/mm3 (150-375); Red Blood Count 3.91 M/mm3 (4.2-5.4); Red Cell Distribution Width 13.6 % (11.5-14.5); White Blood Count 9.1 K/mm3 (4.5-10.0)
[2022-10-16 14:40] LABS: Appearance Urine Clear (Clear); Bacteria Urine None Seen /hpf; Bilirubin Urine Negative (Negative); Blood Urine Negative (Negative); Color Urine Yellow (Yellow); Glucose Urine UA Negative (Negative); Ketones Urine Negative (Negative); Leukocyte Esterase Ur 1+ LEU/UL (Negative); Nitrate Urine Negative (Negative); Non Pathogenic Casts 0-2; Protein Urine Negative (Negative); RBC Urine 0-2 /hpf (0-2); Specific Grav Ur 1.013 (1.001-1.035); Squamous Epithelial Cell Urine Few /hpf (Few); Urobilinogen Urine 0.2 mg/dL (<2.0); WBC Urine 21-50 /hpf; pH Urine 5.5 (5.0-9.0)
[2022-10-16 14:46] LABS: Add Urine Microscopic? YES
[2022-10-16 14:52] LABS: Alanine Aminotransferase 41 U/L (6-35); Albumin Level 3.9 g/dL (3.5-5.1); Alkaline Phosphatase 32 U/L (38-126); Anion Gap 5 mmol/L (8-16); Aspartate Amino Transferase 53 U/L (14-36); Bilirubin,Total 0.4 mg/dL (0.2-1.3); Blood Urea Nitrogen 16 mg/dL (7-17); CRP < 0.5 mg/dL (<1.0); Calcium 8.7 mg/dL (8.4-10.2); Carbon Dioxide 29 mmol/L (22-30); Chloride 102 mmol/L (98-107); Estimated Glomerular Filt Rate > 60; Glucose 187 mg/dL (65-110); Potassium 4.6 mmol/L (3.4-5.0); Sodium 136 mmol/L (137-145)
[2022-10-16 15:17] LABS: Erythrocyte Sedimentation Rate 15 mm/hr (0-20)
== END 2022-10-16 13:41 | disposition home or self-care (01) ==
PROVIDERS: PCP Internal Medicine; Visit Provider Internal Medicine
DX: M34.9 Systemic sclerosis, unspecified (principal); J84.9 Interstitial pulmonary disease, unspecified; M19.90 Unspecified osteoarthritis, unspecified site
CPT/HCPCS: 36415; 80053; 81001; 85027; 85652; 86140; 87086; 87088

== ENCOUNTER 2022-10-20 14:28 | Outpatient (CLI) | payer MEDICARE, SELFPAY ==
--- NOTE | 2022-10-21 12:05 | WPDPFTINT ---
PFT Procedure Performed PFT Procedure Performed Spirometry with Pre/Post Bronchodilator Plethysmography (Lung Vol) Diffusing Cap (DLCO) Flow Vol Loop PFT Interpretation This is a pulmonary function test with pre and post-bronchodilator spirometry, plethysmography and diffusing capacity. The test was performed and results interpreted in accordance with the 2019 and 2005 ATS/ERS Task Force guidelines respectively using the Global Lung Function Initiative-2012 reference equations. Patient demonstrated good effort and cooperation. Reproducibility criteria were met. The quality of the pre bronchodilator spirometry maneuver was Grade A and post bronchodilator spirometry maneuver was Grade A. Findings: Spirometry: The contour the inspiratory and expiratory flow tracing are normal. The pre bronchodilator FVC is 1.55 L, 50% predicted. The pre bronchodilator FEV1 is 1.18 L, 49% predicted. The pre bronchodilator FEV1: FVC ratio 76%. The post bronchodilator FVC is 1.57 L, representing 1% increase. The post bronchodilator FEV1 is 1.11 L, representing a 6% decrease. The post bronchodilator FEV1: FVC ratio 71%. Plethysmography: The total lung capacity is 3.22 L, 60% predicted. The functional residual capacity is 2.12 L, 69% predicted. The residual volume is 1.67 L, 74% predicted. Diffusing capacity: The diffusing capacity unadjusted for hemoglobin and carboxyhemoglobin is 11.0, 51% predicted. The diffusing capacity adjusted for alveolar volume is 4.94, 117% predicted. In comparison to previous pulmonary function testing on 10/21/2021 the post bronchodilator FVC is unchanged from 1.60 L to 1.57 L. The post bronchodilator FEV1 is unchanged from 1.27 L to 1.11 L. The total lung capacity is unchanged from 3.23 L to 3.22 L. The functional residual capacity is increased from 1.29 L to 2.12 L. The residual volume is increased from 1.25 L to 1.67 L. the diffusing capacity unadjusted for hemoglobin and carboxyhemoglobin is decreased from 13.7 to 11.0. The diffusing capacity adjusted for alveolar volume is unchanged from 4.99 to 4.94. Impression: There is a severe restrictive ventilatory abnormality. The spirometry is normal without evidence of an obstructive abnormality. There is no significant improvement after inhaling a single dose of albuterol. The diffusing capacity unadjusted for hemoglobin and carboxyhemoglobin is moderately decreased and normalizes when adjusted for alveolar volume. In comparison to prior pulmonary function testing on 10/21/2021 there has been a greater than anticipated time dependent increase in the functional residual capacity and residual volume and a greater than anticipated time dependent decrease in the diffusing capacity unadjusted for hemoglobin and carboxyhemoglobin with no significant change in the total lung capacity, FVC, FEV1, or diffusing capacity adjusted for alveolar volume. Clinical correlation is recommended.
== END 2022-10-20 14:29 | disposition home or self-care (01) ==
PROVIDERS: PCP Internal Medicine; Visit Provider Physician Assistant
DX: J84.9 Interstitial pulmonary disease, unspecified (principal); R94.2 Abnormal results of pulmonary function studies
CPT/HCPCS: 94060; 94726; 94729

== ENCOUNTER 2023-01-18 11:32 | Outpatient (CLI) | payer MEDICARE, SELFPAY ==
[2023-01-18 12:13] LABS: Mean Corpuscular HGB Conc 32.4 g/dl (32-36); Mean Corpuscular Hemoglobin 32.6 pg (26-34); Mean Corpuscular Volume 100.5 fl (80-100); Mean Platelet Volume 10.4 fl (7.4-10.4); Platelet Count Result 259 k/mm3 (150-375); Red Blood Count 3.68 M/mm3 (4.2-5.4); Red Cell Distribution Width 12.6 % (11.5-14.5); White Blood Count 6.4 K/mm3 (4.5-10.0)
[2023-01-18 12:14] LABS: Basophils Absolute Auto 0.1 K/mm3 (0.0-0.1); Basophils Percent Auto 1.1 % (0.2-1.2); Eosinophils Absolute Auto 0.4 K/mm3 (0-0.3); Eosinophils Percent Auto 5.3 % (0-4.4); Hematocrit 37.1 % (37.0-47.0); Hemoglobin 11.9 g/dL (12.0-15.0); Immature Granulocyte Absolute 0.03 K/mm3 (0.00-0.031); Immature Granulocyte Percent A 0.5 % (0-0.5); Lymphocytes Absolute Auto 2.01 K/mm3 (0.9-3.2); Lymphocytes Percent Auto 30.2 % (18.3-44.2); Mean Corpuscular HGB Conc 32.1 g/dl (32-36); Mean Corpuscular Hemoglobin 32.2 pg (26-34); Mean Corpuscular Volume 100.5 fl (80-100); Mean Platelet Volume 10.4 fl (7.4-10.4); Monocytes Absolute Auto 0.7 K/mm3 (0.1-0.6); Monocytes Percent Auto 10.5 % (2.6-8.5); Neutrophils Absolute Auto 3.5 K/mm3 (1.3-6.7); Neutrophils Percent Auto 52.4 % (45.5-73.1); Platelet Count Result 256 k/mm3 (150-375); Red Blood Count 3.69 M/mm3 (4.2-5.4); Red Cell Distribution Width 12.6 % (11.5-14.5); White Blood Count 6.7 K/mm3 (4.5-10.0)
[2023-01-18 12:20] LABS: Appearance Urine Cloudy (Clear); Bacteria Urine None Seen /hpf; Bilirubin Urine Negative (Negative); Blood Urine Negative (Negative); Color Urine Yellow (Yellow); Glucose Urine UA Negative (Negative); Ketones Urine Negative (Negative); Leukocyte Esterase Ur 2+ LEU/UL (Negative); Nitrate Urine Negative (Negative); Non Pathogenic Casts 0-2; Protein Urine Negative (Negative); RBC Urine 0-2 /hpf (0-2); Specific Grav Ur 1.011 (1.001-1.035); Squamous Epithelial Cell Urine Few /hpf (Few); Urobilinogen Urine 0.2 mg/dL (<2.0); WBC Urine 21-50 /hpf; pH Urine 5.5 (5.0-9.0)
[2023-01-18 12:30] LABS: Alanine Aminotransferase 30 U/L (6-35); Alkaline Phosphatase 38 U/L (38-126); Anion Gap 7 mmol/L (8-16); Aspartate Amino Transferase 58 U/L (14-36); Bilirubin,Total 0.6 mg/dL (0.2-1.3); Blood Urea Nitrogen 12 mg/dL (7-17); CRP < 0.5 mg/dL (<1.0); Calcium 8.9 mg/dL (8.4-10.2); Carbon Dioxide 29 mmol/L (22-30); Chloride 101 mmol/L (98-107); Estimated Glomerular Filt Rate > 60; Glucose 151 mg/dL (65-110); Potassium 4.7 mmol/L (3.4-5.0); Sodium 137 mmol/L (137-145)
[2023-01-18 12:35] LABS: Add Urine Microscopic? YES
[2023-01-18 12:44] LABS: Erythrocyte Sedimentation Rate 21 mm/hr (0-20)
[2023-01-23 19:46] LABS: CA 15-3 18 U/mL (<32)
== END 2023-01-18 11:33 | disposition home or self-care (01) ==
LOC: ANHLAB 11:36
PROVIDERS: PCP Internal Medicine; Visit Provider Internal Medicine
DX: C50.811 Malignant neoplasm of overlapping sites of right female breast (principal); Z17.0 Estrogen receptor positive status [ER+]
CPT/HCPCS: 36415; 80053; 81001; 85025; 85027; 85652; 86140; 86300; 87086; 87088

== ENCOUNTER 2023-04-03 07:39 | Outpatient (CLI) | payer MEDICARE, SELFPAY ==
--- NOTE | 2023-04-03 | ECHO_ITS ---
Patient Info Name: Rosi Flaherty Age: 67 years : 1955 Gender: Female Ht: 65 in Wt: 170 lbs BSA: 1.90 m2 HR: 65 bpm BP: 127 / 78 mmHg Heart Rhythm: Sinus Rhythm Technical Quality: Fair Exam Date: 04/03/2023 7:51 AM Exam Location: Echo Lab Patient Status: Outpatient Admit Date: 04/03/2023 Staff Ordering Physician: Hima Mercado M.D., MD Phone Screener: Bhavani Madrid RDCS Attending Provider: Hima Mercado M.D., MD Referring Physician: Shad Ramirez MD; Exam Type: CA echo dop bubble study w con Study Info Indications R06.02 - Shortness of breath Complete two-dimentional, color flow and Doppler transthoracic echocardiogram is performed with agitated saline and with contrast to opacify the left ventricle and to improve the delineation of the left ventricle endocardial borders. Contrast/Agitated Saline Contrast/Ag. Saline: Definity Amount: 2.00 ml Administered By: Bhavani Madrid RDCS Existing IV Access: No New IV Access: Left Site Condition: IV removed Contrast/Ag. Saline: Agitated Saline Amount: 20.00 ml Existing IV Access: No New IV Access: Left Site Condition: IV removed Summary 1. Normal left ventricular size with mild concentric hypertrophy. Good systolic function of all segments with ejection fraction 60-65%. Grade 2 diastolic dysfunction is present. 2. Left atrial chamber dimension is moderately enlarged. 3. There is mild mitral valve regurgitation. 4. There is mild tricuspid valve regurgitation. 5. Mild pulmonary hypertension, estimated pulmonary arterial systolic pressure is 43 mmHg. 6. There is small pericardial effusion. No evidence of tamponade. 7. No evidence of intracardiac shunting during normal respiration and Valsalva maneuver with bubble study. 8. Normal sinus rhythm. 9. Somewhat technically difficult study. Definity echo contrast used. Left Ventricle Left ventricular chamber dimension is normal. Left ventricular systolic function is normal, estimated at 60-65%. There is mildly increased left ventricular wall thickness. Left ventricular septal wall motion is normal. The left ventricular diastolic function is grade II diastolic dysfunction. Right Ventricle Right ventricular chamber dimension is normal. Right ventricular systolic function is normal. Left Atria Left atrial chamber dimension is moderately enlarged. Right Atria Right atrial chamber dimension is normal. Aortic Valve The aortic valve is trileaflet. There is no aortic valve sclerosis. There is no aortic valve stenosis. There is no aortic valve regurgitation. There is mild aortic valve calcification. Pulmonic Valve The pulmonic valve is normal. There is no pulmonic valve stenosis. There is no pulmonic regurgitation. Mitral Valve The mitral valve has thickened leaflets. There is no mitral valve stenosis. There is mild mitral valve regurgitation. The mitral valve annulus is mildly calcified. Tricuspid Valve The tricuspid valve leaflets are normal. There is no significant tricuspid valve stenosis. There is mild tricuspid valve regurgitation. Mild pulmonary hypertension, estimated pulmonary arterial systolic pressure is 43 mmHg. Pericardium/Pleural The pericardium appears normal. There is small pericardial effusion. No evidence of tamponade. Inferior Vena Cava Normal inferior vena cava with >50% collapse upon inspiration consistent with normal right atrial pressure, 10 mmHg. Aorta The aortic root size at the sinus of
[2023-04-03] MEDS: PERFLUTREN LIPID MICROSPHERES 1.5 ML VIAL DILUTED TO 10 ML TOTAL VOLUME IV PUSH (08:11)
--- NOTE | 2023-04-06 10:07 | IVDEFINITY ---
Prior to administration of IV Definity the patient was educated on the risks and benefits of the imaging enhancing agent including potential adverse side effects. The patient verbalized understanding. Allergies were verified. No exclusion criteria were identified and at least one of the following inclusion criteria were met: 1) physician request, 2) patient technically difficult to image (per the [place] [employer]chocardi[employer] guidelines of two or more segments not discernable within the apical view), or 3) questionable left ventricular function. ?
== END 2023-04-03 07:40 | disposition home or self-care (01) ==
PROVIDERS: PCP Internal Medicine; Referring Provider Internal Medicine Cardiovascular Disease; Visit Provider Internal Medicine Pulmonary Disease
DX: R06.02 Shortness of breath (principal); I08.1 Rheumatic disorders of both mitral and tricuspid valves; I27.20 Pulmonary hypertension, unspecified
CPT/HCPCS: 96375; C8929; Q9957

== ENCOUNTER 2023-05-10 14:40 | Outpatient (CLI) | payer MEDICARE, SELFPAY ==
[2023-05-10 16:04] LABS: Mean Corpuscular HGB Conc 32.4 g/dl (32-36); Mean Corpuscular Hemoglobin 31.9 pg (26-34); Mean Corpuscular Volume 98.4 fl (80-100); Mean Platelet Volume 10.9 fl (7.4-10.4); Platelet Count Result 263 k/mm3 (150-375); Red Blood Count 3.76 M/mm3 (4.2-5.4); Red Cell Distribution Width 13.2 % (11.5-14.5); White Blood Count 6.5 K/mm3 (4.5-10.0)
[2023-05-10 16:05] LABS: Appearance Urine Clear (Clear); Bacteria Urine None Seen /hpf; Bilirubin Urine Negative (Negative); Blood Urine Negative (Negative); Color Urine Yellow (Yellow); Glucose Urine UA Negative (Negative); Ketones Urine Trace mg/dL (Negative); Leukocyte Esterase Ur Trace LEU/UL (Negative); Nitrate Urine Negative (Negative); Non Pathogenic Casts 0-2; Protein Urine Negative (Negative); RBC Urine 0-2 /hpf (0-2); Specific Grav Ur 1.012 (1.001-1.035); Squamous Epithelial Cell Urine None seen /hpf (Few); Urobilinogen Urine 0.2 mg/dL (<2.0); WBC Urine 0-5 /hpf; pH Urine 5.5 (5.0-9.0)
[2023-05-10 16:11] LABS: Alanine Aminotransferase 35 U/L (6-35); Albumin Level 3.8 g/dL (3.5-5.1); Alkaline Phosphatase 45 U/L (38-126); Anion Gap 7 mmol/L (8-16); Aspartate Amino Transferase 68 U/L (14-36); Bilirubin,Total 0.6 mg/dL (0.2-1.3); Blood Urea Nitrogen 16 mg/dL (7-17); CRP < 0.5 mg/dL (<1.0); Calcium 8.9 mg/dL (8.4-10.2); Carbon Dioxide 27 mmol/L (22-30); Chloride 102 mmol/L (98-107); Estimated Glomerular Filt Rate > 60; Glucose 165 mg/dL (65-110); Potassium 4.9 mmol/L (3.4-5.0); Sodium 136 mmol/L (137-145)
[2023-05-10 16:15] LABS: Add Urine Microscopic? YES
[2023-05-10 17:22] LABS: Erythrocyte Sedimentation Rate 29 mm/hr (0-20)
== END 2023-05-10 14:41 | disposition home or self-care (01) ==
PROVIDERS: PCP Internal Medicine; Visit Provider Internal Medicine
DX: M34.9 Systemic sclerosis, unspecified (principal); Z79.899 Other long term (current) drug therapy; M19.90 Unspecified osteoarthritis, unspecified site; J84.9 Interstitial pulmonary disease, unspecified
CPT/HCPCS: 36415; 80053; 81001; 85027; 85652; 86140

== ENCOUNTER 2023-05-14 14:23 | Outpatient (CLI) | payer MEDICARE, SELFPAY ==
[2023-05-14 15:20] LABS: Creatine Kinase 511 U/L (30-135)
[2023-05-17 16:45] LABS: Aldolase 9.1 U/L (<=8.1)
== END 2023-05-14 14:24 | disposition home or self-care (01) ==
LOC: ANHLAB 14:26
PROVIDERS: PCP Internal Medicine; Visit Provider Internal Medicine
DX: M06.9 Rheumatoid arthritis, unspecified (principal); Z79.899 Other long term (current) drug therapy
CPT/HCPCS: 36415; 82085; 82550

== ENCOUNTER 2023-05-24 14:56 | Outpatient (CLI) | payer MEDICARE, SELFPAY ==
[2023-05-24 17:04] LABS: Hematocrit 36.6 % (37.0-47.0); Hemoglobin 11.8 g/dL (12.0-15.0); Mean Corpuscular HGB Conc 32.2 g/dl (32-36); Mean Corpuscular Hemoglobin 31.6 pg (26-34); Mean Corpuscular Volume 97.9 fl (80-100); Mean Platelet Volume 10.6 fl (7.4-10.4); Platelet Count Result 260 k/mm3 (150-375); Red Blood Count 3.74 M/mm3 (4.2-5.4); Red Cell Distribution Width 13.2 % (11.5-14.5); White Blood Count 7.7 K/mm3 (4.5-10.0)
[2023-05-24 20:21] LABS: Hepatitis B Surface Anti Res Negative; Hepatitis C Virus Antibody Negative (Negative)
[2023-05-28 12:15] LABS: NIL 0.03 IU/mL; Quantiferon TB Plus, 1T NEGATIVE (NEGATIVE); TB1-NIL <0.00 IU/mL; TB2-NIL <0.00 IU/mL
[2023-05-29 15:50] LABS: Hepatitis Be Antigen Nonreactive
[2023-05-30 09:26] LABS: Absolute CD4 Count 1025 cells/uL (490-1740); Lymphocytes, Absolute 1956 cells/uL (850-3900); Percent CD4 Cells 52 % (30-61)
== END 2023-05-24 14:57 | disposition home or self-care (01) ==
PROVIDERS: PCP Internal Medicine; Visit Provider Internal Medicine Hematology & Oncology
DX: R89.9 Unspecified abnormal finding in specimens from other organs, systems and tissues (principal); M34.9 Systemic sclerosis, unspecified; J84.9 Interstitial pulmonary disease, unspecified
CPT/HCPCS: 36415; 85027; 86361; 86480; 86706; 86803; 87350

== ENCOUNTER 2023-07-24 08:31 | Outpatient (CLI) | payer MEDICARE, SELFPAY ==
--- NOTE | ~2023-07-24 | US_ITS ---
US right upper quadrant INDICATION: Abdominal pain PROCEDURE: Realtime right upper abdominal ultrasound. COMPARISON: No prior studies for comparison. FINDINGS: The pancreas is normal without focal mass or pancreatic ductal dilation. Liver echotexture is normal without focal mass or intrahepatic biliary dilatation. There is normal directional flow i n the portal vein. Gallbladder is surgically absent. IMPRESSION: 1: Normal limited abdominal ultrasound. Reviewed, dictated and finalized at location L.
[2023-07-24 10:31] LABS: Alanine Aminotransferase 20 U/L (6-35); Alkaline Phosphatase 42 U/L (38-126); Anion Gap 6 mmol/L (4-12); Aspartate Amino Transferase 38 U/L (14-36); Bilirubin,Total 0.3 mg/dL (0.2-1.3); Blood Urea Nitrogen 18 mg/dL (7-17); Calcium 9.2 mg/dL (8.4-10.2); Carbon Dioxide 26 mmol/L (22-30); Chloride 105 mmol/L (98-107); Estimated Glomerular Filt Rate > 60; Glucose 120 mg/dL (65-110); Potassium 4.8 mmol/L (3.4-5.0); Sodium 137 mmol/L (137-145)
== END 2023-07-24 08:32 | disposition home or self-care (01) ==
PROVIDERS: Visit Provider Internal Medicine
DX: R10.9 Unspecified abdominal pain (principal); K74.60 Unspecified cirrhosis of liver
CPT/HCPCS: 36415; 76705; 80053

== ENCOUNTER 2023-09-05 13:06 | Outpatient (CLI) | payer MEDICARE, SELFPAY ==
[2023-09-11 19:39] LABS: Calprotectin, Stool 66 mcg/g
[2023-09-12 16:13] LABS: Pancreatic Elastase, Stool 380 mcg/g
== END 2023-09-05 13:07 | disposition home or self-care (01) ==
LOC: ANHLAB 13:07
PROVIDERS: PCP Internal Medicine; Visit Provider Nurse Practitioner Family
DX: R19.7 Diarrhea, unspecified (principal)
CPT/HCPCS: 82653; 83993

== ENCOUNTER 2023-09-10 02:16 | Day surgery (SDC) | payer MEDICARE, SELFPAY ==
[2023-08-30 14:19] VITALS: BMI 27.7
[2023-09-10 08:00] VITALS: BP 153/67; PULSE 79; RESP 19; TEMP 36.7; O2SAT 100
[2023-09-10] MEDS: LACTATED RINGERS 1,000 ML 150 ML IV CONT (08:30)
[2023-09-10 08:31] LABS: Glucose Point of Care 124 mg/dl (65-105)
--- NOTE | 2023-09-10 08:52 | WPDANESEPPF ---
Anes - Initial Pre Proc Eval Procedure: Operation Date: 09/10/23 09:00 Proposed Procedures p Esophagogastroduodenoscopy - Jv Reyna MD Date/Time: 09/10/23 08:52 Surgeon: Jv Reyna MD Pre Op Diagnosis: Nausea with vomiting unspecified, systemic scleros Patient Data Age: 67 Gender: F Height: 1.68 m Weight: 76.8 kg Last Vital Signs Temp 98.1 F 09/10/23 08:00 Pulse 79 09/10/23 08:00 Resp 19 09/10/23 08:00 BP 153/67 H 09/10/23 08:00 Pulse Ox 100 09/10/23 08:00 O2 Del Method Room Air 09/10/23 08:00 Allergies Allergy/AdvReac Type Severity Reaction Status Date / Time iohexol Allergy Severe Rash Verified 09/10/23 07:59 [From contrast - CT, X-RAY] codeine AdvReac Mild Nausea and Verified 09/10/23 07:59 Vomiting Home Medications Medication Instructions Recorded Confirmed Type metformin 500 mg tablet 1,000 mg PO BID 05/03/20 08/30/23 History tamoxifen 20 mg tablet 20 mg PO DAILY 05/03/20 08/30/23 History valsartan 80 mg tablet 80 mg PO QPM 07/18/21 08/30/23 History levothyroxine 125 mcg tablet 88 mcg PO QAM 11/25/21 08/30/23 History multivitamin 1 tablet PO DAILY 12/13/21 08/30/23 History ascorbic acid (vitamin C) 500 mg 500 mg PO DAILY #90 tabs 10/19/22 08/30/23 Rx tablet,extended release (Vitamin C ER) mycophenolate mofetil 500 mg 1,500 mg PO Q12H #180 tabs 06/26/23 08/30/23 Rx tablet (CellCept) omega-3 fatty acids 500 mg capsule 500 mg PO DAILY 08/28/23 08/30/23 History nitroglycerin 2 % transdermal 0.5 inch transdermal BID PRN 08/30/23 08/30/23 History ointment [facility] Laboratory Tests 09/10/23 08:28 POC Capillary Glucose 124 H mg/dl (65-105) Patient hx anesthesia problems: none Family hx anesthesia problems: none Results Review: All pre-operative results and documents have been reviewed as part of the pre-operative evaluation. [facility] Past Medical History Medical History (Updated 08/28/23 @ 10:17 by MARCIN Coreas) Arthritis of both shoulder regions Cirrhosis Diabetes Diarrhea Elevated liver enzymes Generalized osteoarthritis of multiple sites History of breast cancer HTN (hypertension) Hypercholesterolemia Hypothyroid ILD (interstitial lung disease) Myositis Nausea and vomiting Osteopenia Postmenopausal bleeding Restrictive lung disease Rheumatoid arthritis Scleroderma (~2008) Sjogrens syndrome Synovial chondromatosis Unintentional weight loss Surgical History Surgical History H/O mastectomy ~[address] Orion Gilliland H/O pelvic surgery Hysteroscopy D&C [address] Herrera history of D&C 2010 Hx laparoscopic cholecystectomy 10/04/[address] Sanchez Family History Family History Mother Diabetes mellitus Breast cancer Father Heart disease Grandparent Heart disease Diabetes mellitus Sibling Breast cancer Other Arthritis Social History Social History Smoking packs per day: 0.5 Smoking cigarettes per day: 10.0 Years smoked: 15 Smoking pack-years: 7.50 Smoking status: Former smoker Tobacco type: cigarettes Smoking end date: 04/30/86 Alcohol intake: never Substance use: never Substance use type: does not use Lack of Transportation: No Lack of Food: Never True Current Housing: I Have Housing Concerned About Future Housing: No Difficulty Paying Gas/Electric Bills: No Difficulty Paying for Meds: No Currently Unemployed: No Education: Decline to Answer Difficulty w/ Childcare or Family Care: No Living arrangements: with family Additional living arrangements comments: [facility] Occupation/Education: retired Gender identity (if verbalized by the patient): Female Spiritual care concerns: No Anes - Eval Final PreProcedure Day of Procedure 09/10/23 08:52 Cynthia
--- NOTE | 2023-09-10 08:54 | WPDHPUPDATE1 ---
History and Physical Update Update Date/Time: 09/10/23 08:54 History and Physical has been reviewed, including an updated exam of the patient. There are NO changes in the patient's condition. Risks, benefits, and alternatives have been discussed and questions answered. Patient agrees to proceed with procedure.
[2023-09-10 09:08] VITALS: BP 133/65; PULSE 87; RESP 21; O2SAT 99
[2023-09-10 09:18] VITALS: BP 139/67; PULSE 76; RESP 21; O2SAT 100
[2023-09-10 09:28] VITALS: BP 151/73; PULSE 72; RESP 19; O2SAT 100
== END 2023-09-10 09:51 | disposition home or self-care (01) ==
PROVIDERS: PCP Internal Medicine; Referring Provider Nurse Practitioner Family; Visit Provider Internal Medicine Gastroenterology
PROC: 0DJ08ZZ Inspection of Upper Intestinal Tract, Via Natural or Artificial Opening Endoscopic (ICD-10-PCS; CPT 43235; principal; 2023-09-10 09:00)
DX: K29.50 Unspecified chronic gastritis without bleeding (principal); I10 Essential (primary) hypertension; E03.9 Hypothyroidism, unspecified; E11.9 Type 2 diabetes mellitus without complications; K74.60 Unspecified cirrhosis of liver; E78.00 Pure hypercholesterolemia, unspecified; J84.9 Interstitial pulmonary disease, unspecified; M35.00 Sjogren syndrome, unspecified; M34.9 Systemic sclerosis, unspecified; M81.0 Age-related osteoporosis without current pathological fracture; Z79.84 Long term (current) use of oral hypoglycemic drugs; Z79.810 Long term (current) use of selective estrogen receptor modulators (SERMs); Z98.890 Other specified postprocedural states; Z90.49 Acquired absence of other specified parts of digestive tract; Z87.891 Personal history of nicotine dependence; Z85.3 Personal history of malignant neoplasm of breast; Z80.3 Family history of malignant neoplasm of breast; Z82.49 Family history of ischemic heart disease and other diseases of the circulatory system
CPT/HCPCS: 43239; 82948; 88305; 88342; J2704; J7120

== ENCOUNTER 2023-10-09 11:13 | Outpatient (CLI) | payer MEDICARE, SELFPAY ==
[2023-10-09 12:33] LABS: Alanine Aminotransferase 22 U/L (6-35); Albumin Level 4.2 g/dL (3.5-5.1); Alkaline Phosphatase 48 U/L (38-126); Anion Gap 6 mmol/L (4-12); Aspartate Amino Transferase 41 U/L (14-36); Bilirubin,Total 0.4 mg/dL (0.2-1.3); Blood Urea Nitrogen 13 mg/dL (7-17); Calcium 10.2 mg/dL (8.4-10.2); Carbon Dioxide 29 mmol/L (22-30); Chloride 100 mmol/L (98-107); Estimated Glomerular Filt Rate > 60; Glucose 122 mg/dL (65-110); Potassium 5.1 mmol/L (3.4-5.0); Sodium 135 mmol/L (137-145)
[2023-10-11 04:09] LABS: CA 15-3 19 U/mL (<32)
== END 2023-10-09 11:14 | disposition home or self-care (01) ==
PROVIDERS: PCP Internal Medicine; Visit Provider Internal Medicine Medical Oncology
DX: C50.811 Malignant neoplasm of overlapping sites of right female breast (principal); Z17.0 Estrogen receptor positive status [ER+]
CPT/HCPCS: 36415; 80053; 85025; 86300; 99212; G0463